=== PATIENT | female | born 1965 | race American Indian/Alaskan Native ===

== ENCOUNTER 2018-12-08 07:51 | Outpatient (CLI) | payer MEDICARE ==
[2018-12-08 08:38] LABS: Calcium 9.1 mg/dL (8.4-10.2)
== END 2018-12-08 07:52 | disposition home or self-care (01) ==
LOC: LAB 07:51
PROVIDERS: ATTEND Nurse Practitioner Acute Care
DX: I13.2 Hypertensive heart and chronic kidney disease with heart failure and with stage 5 chronic kidney disease, or end stage renal disease (principal); N18.6 End stage renal disease; I50.9 Heart failure, unspecified
CPT/HCPCS: 36415; 80048

== ENCOUNTER 2019-10-21 08:45 | Observation (INO) | payer MEDICARE ==
[2019-10-21 12:11] LABS: Hemoglobin 11.7 gm/dl (10.1-14.3); Mean Corpuscular HGB Conc 33 % (30-34); Mean Corpuscular Volume 101 fl (79-97); Platelet Count 175 K/mm3 (140-440); Red Blood Count 3.58 M/mm3 (3.65-5.03); Red Cell Distribution Width 15.2 % (13.2-15.2)
[2019-10-21 12:14] LABS: Calcium 8.2 mg/dL (8.4-10.2)
[2019-10-21] MEDS ORDERED: ALBUTEROL 2.5 MG/3 ML NEBU IH PRN (12:52)
[2019-10-21] MEDS ORDERED: ACETAMINOPHEN 325 MG TAB PO PRN (12:52)
[2019-10-21] MEDS ORDERED: ONDANSETRON 4 MG/2 ML INJ IV PRN (12:52)
--- NOTE | 2019-10-21 12:52 | History and Physical Report ---
History of Present Illness Chief complaint: I cannot get my dialysis today History of present illness: 54 YO Female with ESRD on HD(T,R,Sa), HTN, CHF, DM, Obesity Hypoventilation Syndrome, Asthma Mild Intermittent, SLE presents to ED for evaluation. Patient states that she presented to her dialysis clinic today for her routine scheduled dialysis. Patient was informed by dialysis center staff that she cannot undergo dialysis today because her fistula site was "too thin and there was too much liability to use it". Patient instructed to seek further care and evaluation at [facility]. Patient transported to [facility] via private vehicle for further evaluation and care. Patient seen and evaluated in the emergency department. Lab and imaging studies reviewed. Patient found to have end-stage renal disease, acidosis, hype rkalemia. Patient placed in observation status and admitted to medical floor for further care and observation. Vascular surgery consulted. Nephrology team consult placed in ED for urgent dialysis. Patient dialysis access site was deemed usable by vascular surgery service. Patient denies fever, chills, chest pain, palpitations, productive cough, skin rash, recent ill contacts. Prior admission on 10/20/2016 reviewed. All medication listed at time of admission has been reconciled. Past History Past Medical History: diabetes, ESRD, heart failure, hypertension Past Surgical History: , Other (Dialysis access) Social history: . denies: smoking, alcohol abuse, prescription drug abuse Family history: diabetes, hypertension Medications and Allergies Allergies Allergy/AdvReac Type Severity Reaction Status Date / Time iodine Allergy Itching Unverified 12/08/18 07:52 Home Medications Medication Instructions Recorded Confirmed Last Taken Type Calcium Acetate [Phoslo] 667 mg PO TID 06/19/16 10/21/16 10/20/16 History Famotidine [Pepcid] 20 mg PO DAILY 06/19/16 10/21/16 10/20/16 History Vit B Comp C/Folic Acid/Vit D3 1 each PO DAILY 06/19/16 10/21/16 10/20/16 History [Dialyvite 800 Plus D Wafer] Ipratropium/Albuterol Sulfate 1 ampul IH TIDRT #30 ampul.neb 06/22/16 10/21/16 10/20/16 Rx [DUONEB *Not for PRN Use*] Tadalafil (Nf) [Adcirca (Nf)] 40 mg PO DAILY 10/21/16 10/21/16 10/20/16 History amLODIPine 10 mg PO DAILY 10/21/16 10/21/16 10/20/16 History Cyclobenzaprine [Flexeril 10 MG 10 mg PO TID PRN #30 10/24/16 10/21/16 10/20/16 Rx TAB] Furosemide [Lasix TAB] 40 mg PO QDAY #30 10/24/16 10/21/16 10/20/16 Rx levoFLOXacin [Levaquin] 250 mg PO QDAY #5 tablet 10/24/16 Unknown Rx Review of Systems Constitutional: no weight loss, no weight gain, no fever, no chills Ears, nose, mouth and throat: no ear pain, no ear discharge, no tinnitis, no decreased hearing, no nasal congestion Breasts: no change in shape, no swelling, no mass Cardiovascular: no chest pain, no orthopnea, no palpitations, no rapid/irregular heart beat, no edema, no syncope Respiratory: no cough, no excessive sputum, no hemoptysis, no shortness of breath, no dyspnea on exertion Gastrointestinal: no nausea, no vomiting, no diarrhea, no constipation, no change in bowel habits, no hematemesis Genitourinary Female: no dysmenorrhea, no pelvic pain, no flank pain, no armando rrhagia, no dysuria, no urinary frequency, no stress incontinence, no urge incontinence Menstruation: no currently menstrual, no period normal, no period heavy, no period spotting, no period light Rectal: no pain, no incontinence, no bleeding Musculoskeletal: no neck stiffness, no neck pain, no shooting arm pain, no low back pain, no leg numbness/tingling Integumentary: no rash, no pruritis, no sores, no wounds, no boils Neurological: no head injury, no transient paralysis, no paralysis, no weakness, no numbness, no tingling, no seizures, no syncope Psychiatric: no anxiety, no change in sleep habits, no sleep disturbances, no insomnia, no change in libido Endocrine: no cold intolerance, no heat intolerance, no excessive thirst, no polydipsia, no polyuria Hematologic/Lymphatic: no easy bruising, no easy bleeding, no lymphadenopathy, no lymphedema Allergic/Immunologic: no urticaria, no allergic rhinitis, no persistent infections Exam - Constitutional Vitals: Temp Pulse Resp BP Pulse Ox 97.8 F 78 22 113/59 99 10/21/19 08:51 10/21/19 08:51 10/21/19 08:51 10/21/19 08:51 10/21/19 08:51 General appearance: Present: no acute distress, well-nourished, obese - EENT Eyes: Present: PERRL ENT: hearing intact, clear oral mucosa - Neck Neck: Present: supple, normal ROM - Respiratory Respiratory effort: normal Respiratory: bilateral: CTA - Cardiovascular Heart Sounds: Present: S1 & S2. Absent: rub, click - Extremities Extremities: pulses symmetrical, No edema Peripheral Pulses: within normal limits - Abdominal General gastrointestinal: Present: soft, non-tender, non-distended, normal bowel sounds Female genitourinary: Present: normal - Integumentary Integumentary: Present: clear, warm, dry - Musculoskeletal Musculoskeletal: gait normal, strength equal bilaterally - Psychiatric Psychiatric: appropriate mood/affect, intact judgment & insight - Neurologic Neurologic: CNII-XII intact, moves all extremities Results - Labs CBC & Chem 7: 10/21/19 11:38 10/21/19 11:38 Labs: Abnormal lab results 10/21/19 10/21/19 Range/Units 11:38 11:38 RBC 3.58 L (3.65-5.03) M/mm3 MCV 101 H (79-97) fl MCH 33 H (28-32) pg Potassium 5.2 H (3.6-5.0) mmol/L Chloride 97.2 L (98-107) mmol/L Carbon Dioxide 20 L (22-30) mmol/L BUN 38 H (7-17) mg/dL Creatinine 10.0 H (0.7-1.2) mg/dL Calcium 8.2 L (8.4-10.2) mg/dL Assessment and Plan - Patient Problems (1) End stage renal disease Current Visit: No Status: Acute Plan to address problem: Nephrology consult placed in ED, dialysis as per renal team, strict I/O, monitor urine output every shift, avoid nephrotoxic agents. (2) Problem with dialysis access Current Visit: Yes Status: Acute Qualifiers: Encounter type: initial encounter Qualified Code(s): T82.898A - Other specified complication of vascular prosthetic devices, implants and grafts, initial encounter Plan to address problem: Vascular surgery consulted. Patient dialysis access site deemed usable. Dialysis as per renal team. (3) Acidosis, metabolic Current Visit: Yes Status: Acute Plan to address problem: Supportive care, BMP, urgent dialysis, repeat BMP in a.m. (4) Hyperkalemia Current Visit: Yes Status: Acute Plan to address problem: Albuterol, urgent dialysis, no EKG changes. (5) Obesity hypoventilation syndrome Current Visit: Yes Status: Acute Plan to address problem: Supplemental oxygen, nebulizer therapy, pulse oximetry, noninvasive positive pressure ventilation as clinically indicated, outpatient bariatric surgery follow-up. (6) DVT prophylaxis Current Visit: Yes Status: Acute Plan to address problem: SCD to bilateral lower extremities while in bed, prophylactic heparin
--- NOTE | 2019-10-21 13:54 | Emergency Department Report ---
ED General Adult HPI - General Chief complaint: Medical Clearance Stated complaint: RT SIDE ABCESS CHECKED Time Seen by Provider: 10/21/19 11:28 Source: patient Mode of arrival: Ambulatory Limitations: No Limitations - History of Present Illness Initial comments: This is a 54-year-old female who states that she was told to come to the emergency department because her fistula/graft site was "too thin and there was too much liability to use it". Her last dialysis was on . She is due for dialysis today. She states that she has been in touch with Dr. Zhu. I spoke to Dr. Zhu and apparently she has missed some appointments for vascular surgery evaluation. She presents here to the emergency department requesting inpatient dialysis. She does not complain of acute shortness of breath. -: days(s) Severity scale (0 -10): 0 Associated Symptoms: denies other symptoms - Related Data Home Medications Medication Instructions Recorded Confirmed Last Taken Calcium Acetate [Phoslo] 667 mg PO TID 06/19/16 10/21/16 10/20/16 Famotidine [Pepcid] 20 mg PO DAILY 06/19/16 10/21/16 10/20/16 Vit B Comp C/Folic Acid/Vit D3 1 each PO DAILY 06/19/16 10/21/16 10/20/16 [Dialyvite 800 Plus D Wafer] Tadalafil (Nf) [Adcirca (Nf)] 40 mg PO DAILY 10/21/16 10/21/16 10/20/16 amLODIPine 10 mg PO DAILY 10/21/16 10/21/16 10/20/16 Previous Rx's Medication Instructions Recorded Last Taken Type Ipratropium/Albuterol Sulfate 1 ampul IH TIDRT #30 ampul.neb 06/22/16 10/20/16 Rx [DUONEB *Not for PRN Use*] Cyclobenzaprine [Flexeril 10 MG 10 mg PO TID PRN #30 10/24/16 10/20/16 Rx TAB] Furosemide [Lasix TAB] 40 mg PO QDAY #30 10/24/16 10/20/16 Rx levoFLOXacin [Levaquin] 250 mg PO QDAY #5 tablet 10/24/16 Unknown Rx Allergies Allergy/AdvReac Type Severity Reaction Status Date / Time iodine Allergy Itching Unverified 12/08/18 07:52 ED Review of Systems ROS: Stated complaint: RT SIDE ABCESS CHECKED Other details as noted in HPI Constitutional: denies: chills, fever Eyes: denies: eye pain, eye discharge, vision change ENT: denies: ear pain, throat pain Respiratory: denies: cough, shortness of breath Cardiovascular: denies: chest pain, palpitations Endocrine: no symptoms reported Gastrointestinal: denies: abdominal pain, nausea Genitourinary: denies: urgency, dysuria Musculoskeletal: denies: back pain, myalgia Skin: denies: rash, lesions Neurological: denies: weakness, paresthesias Psychiatric: denies: anxiety, depression Hematological/Lymphatic: denies: easy bleeding, easy bruising Other: Patient denies bleeding at dialysis. ED Past Medical Hx - Past Medical History Previous Medical History?: Yes Hx Hypertension: Yes Hx Congestive Heart Failure: Yes Hx Diabetes: Yes Hx Renal Disease: Yes (graft right arm TU TH Sat) Hx Asthma: Yes Hx COPD: No Hx HIV: No Additional medical history: lupus - Surgical History Past Surgical History?: Yes Additional Surgical History: x 3. graft placement - Social History Smoking Status: Never Smoker Substance Use Type: None - Medications Home Medications: Home Medications Medication Instructions Recorded Confirmed Last Taken Type Calcium Acetate [Phoslo] 667 mg PO TID 06/19/16 10/21/16 10/20/16 History Famotidine [Pepcid] 20 mg PO DAILY 06/19/16 10/21/16 10/20/16 History Vit B Comp C/Folic Acid/Vit D3 1 each PO DAILY 06/19/16 10/21/16 10/20/16 History [Dialyvite 800 Plus D Wafer] Ipratropium/Albuterol Sulfate 1 ampul IH TIDRT #30 ampul.neb 06/22/16 10/21/16 10/20/16 Rx [DUONEB *Not for PRN Use*] Tadalafil (Nf) [Adcirca (Nf)] 40 mg PO DAILY 10/21/16 10/21/16 10/20/16 History amLODIPine 10 mg PO DAILY 10/21/16 10/21/16 10/20/16 History Cyclobenzaprine [Flexeril 10 MG 10 mg PO TID PRN #30 10/24/16 10/21/16 10/20/16 Rx TAB] Furosemide [Lasix TAB] 40 mg PO QDAY #30 10/24/16 10/21/16 10/20/16 Rx levoFLOXacin [Levaquin] 250 mg PO QDAY #5 tablet 10/24/16 Unknown Rx ED Physical Exam - General Limitations: Altered Mental Status General appearance: alert, in no apparent distress, obese - Head Head exam: Present: atraumatic, normocephalic - Eye Eye exam: Present: normal appearance. Absent: scleral icterus - ENT ENT exam: Present: mucous membranes moist - Neck Neck exam: Present: normal inspection. Absent: tenderness, meningismus - Respiratory Respiratory exam: Present: normal lung sounds bilaterally. Absent: respiratory distress - Cardiovascular Cardiovascular Exam: Present: regular rate, normal rhythm. Absent: systolic murmur, diastolic murmur, rubs, gallop - GI/Abdominal GI/Abdominal exam: Present: soft, normal bowel sounds. Absent: distended, tenderness, guarding, rebound - Extremities Exam Extremities exam: Present: other (AV graft site does have 2 areas of hypopigmentation and granulation tissue. It does not appear to be excessively "thin") - Back Exam Back exam: Present: normal inspection - Neurological Exam Neurological exam: Present: alert, oriented X3 - Psychiatric Psychiatric exam: Present: normal affect, normal mood - Skin Skin exam: Present: warm, dry, intact, normal color. Absent: rash ED Course Vital Signs 10/21/19 10/21/19 10/21/19 08:51 11:30 12:30 Temperature 97.8 F Pulse Rate 78 72 74 Respiratory 22 18 18 Rate Blood Pressure 113/59 Blood Pressure 110/60 126/75 [Left] O2 Sat by Pulse 99 98 98 Oximetry - Reevaluation(s) Reevaluation #1: Discussed case with Dr. Zhu (research technician). He is consulted. Discussed case with vascular surgeon. He was consulted. The dialysis nurse came and inspected the patient's graft site. He stated he believed that she could be safely dialyzed here as an inpatient. She was put in line for dialysis. She was admitted by the hospitalist observation status. She was found to have mild hyperkalemia and acidosis. 10/21/19 13:54 ED Medical Decision Making - Lab Data Result diagrams: 10/21/19 11:38 10/21/19 11:38 Laboratory Results - last 24 hr 10/21/19 10/21/19 11:38 11:38 WBC 7.1 RBC 3.58 L Hgb 11.7 Hct 36.0 MCV 101 H MCH 33 H MCHC 33 RDW 15.2 Plt Count 175 Eos % (Auto) Cardiac Cath Lab Technologist Sodium 138 Potassium 5.2 H Chloride 97.2 L Carbon Dioxide 20 L Anion Gap 26 BUN 38 H Creatinine 10.0 H Estimated GFR 5 BUN/Creatinine Ratio 4 Glucose 88 Calcium 8.2 L Phosphorus 4.00 Critical care attestation.: If time is entered above; I have spent that time in minutes in the direct care of this critically ill patient, excluding procedure time. ED Disposition Clinical Impression: End-stage renal disease needing dialysis, Acidosis, metabolic, Hyperkalemia Disposition: OP ADMIT IP TO THIS HOSP Is pt being admited?: Yes Does the pt Need Aspirin: Yes Condition: Stable Referrals: FRANCESCA GRAY MD [Primary Care Provider] - 3-5 Days Time of Disposition: 13:55
[2019-10-21] MEDS ORDERED: ASPIRIN 81 MG TAB CHEW PO ONE (13:55)
[2019-10-21] MEDS ORDERED: SODIUM CHLORIDE 0.9% 100 ML IV PRN (13:56)
[2019-10-21 13:58] LABS: Basophils % (Manual) 0 % (0.0-1.8); RBC Morphology Normal; Total Cells Counted 100
--- NOTE | 2019-10-21 15:07 | Consultation ---
History of Present Illness - Reason for Consult Consult date: 10/21/19 malfunctioning av access Requesting physician: KLAUS SCOTT - History of Present Illness HPI: 54-year-old female with end-stage renal disease on hemodialysis via right brachiocephalic AV fistula has been placed several years ago who was sent to the emergency department by her dialysis center due to concern of the overlying skin of her access. The patient denies any issues of prolonged bleeding or elevated venous pressures recently. The patient states that her center refused to cannulate due to thin skin overlying the body of the AV fistula. We have been consulted to evaluate the patient's AV fistula. 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 Patient with noted thin skin over aneurysmal portion of the AV fistula Would avoid cannulating this portion of the AV fistula Patient would benefit from revision of her access at some point but not immediately necessary at this time AV fistula okay to use for dialysis at this time We will continue to follow Medications and Allergies Allergies Allergy/AdvReac Type Severity Reaction Status Date / Time iodine Allergy Itching Unverified 12/08/18 07:52 Home Medications Medication Instructions Recorded Confirmed Last Taken Type Calcium Acetate [Phoslo] 667 mg PO TID 06/19/16 10/21/16 10/20/16 History Famotidine [Pepcid] 20 mg PO DAILY 06/19/16 10/21/16 10/20/16 History Vit B Comp C/Folic Acid/Vit D3 1 each PO DAILY 06/19/16 10/21/16 10/20/16 History [Dialyvite 800 Plus D Wafer] Ipratropium/Albuterol Sulfate 1 ampul IH TIDRT #30 ampul.neb 06/22/16 10/21/16 10/20/16 Rx [DUONEB *Not for PRN Use*] Tadalafil (Nf) [Adcirca (Nf)] 40 mg PO DAILY 10/21/16 10/21/16 10/20/16 History amLODIPine 10 mg PO DAILY 10/21/16 10/21/16 10/20/16 History Cyclobenzaprine [Flexeril 10 MG 10 mg PO TID PRN #30 10/24/16 10/21/16 10/20/16 Rx TAB] Furosemide [Lasix TAB] 40 mg PO QDAY #30 10/24/16 10/21/16 10/20/16 Rx levoFLOXacin [Levaquin] 250 mg PO QDAY #5 tablet 10/24/16 Unknown Rx Active Meds: Active Medications Acetaminophen (Tylenol) 650 mg PO Q4H PRN PRN Reason: Pain MILD(1-3)/Fever >100.5/ROQUE Albuterol (Proventil) 2.5 mg IH Q4HRT PRN PRN Reason: Shortness Of Breath Albuterol/Ipratropium (Duoneb *Not For Prn Use*) 1 ampul IH TIDRT [facility] Amlodipine Besylate (Amlodipine) 10 mg PO DAILY [facility] Calcium Acetate (Phoslo) 667 mg PO TID [facility] Cyclobenzaprine HCl (Flexeril) 10 mg PO TID PRN PRN Reason: Muscle Spasm Famotidine (Pepcid) 20 mg PO DAILY [facility] Furosemide (Lasix) 40 mg PO QDAY [facility] Sodium Chloride (Nacl 0.9%) 100 mls @ 999 mls/hr IV SRIRAM PRN PRN Reason: Hypotension Levofloxacin (Levaquin) 250 mg PO QDAY [facility] Miscellaneous Medication (Tadalafil (Nf)) 40 mg PO DAILY [facility] Multivit/Ca Carb/B Cmplx/FA/Prenat (Renal Caps) 1 cap PO QDAY [facility] Ondansetron HCl (Zofran) 4 mg IV Q8H PRN PRN Reason: Nausea And Vomiting Sodium Chloride (Sodium Chloride Flush Syringe 10 Ml) 10 ml IV BID [facility] Sodium Chloride (Sodium Chloride Flush Syringe 10 Ml) 10 ml IV PRN PRN PRN Reason: LINE FLUSH Exam - Constitutional Vitals: Temp Pulse Resp BP Pulse Ox 97.8 F 74 18 126/75 98 10/21/19 08:51 10/21/19 12:30 10/21/19 12:30 10/21/19 12:30 10/21/19 12:30 Results - Labs CBC & Chem 7: 10/21/19 11:38 10/21/19 11:38 Labs: Abnormal lab results 10/21/19 10/21/19 Range/Units 11:38 11:38 RBC 3.58 L (3.65-5.03) M/mm3 MCV 101 H (79-97) fl MCH 33 H (28-32) pg Eosinophils % (Manual) 15.0 H (0.0-4.3) % Lymphocytes # (Manual) 1.1 L (1.2-5.4) K/mm3 Eosinophils # (Manual) 1.1 H (0.0-0.4) K/mm3 Potassium 5.2 H (3.6-5.0) mmol/L Chloride 97.2 L (98-107) mmol/L Carbon Dioxide 20 L (22-30) mmol/L BUN 38 H (7-17) mg/dL Creatinine 10.0 H (0.7-1.2) mg/dL Calcium 8.2 L (8.4-10.2) mg/dL
[2019-10-21] MEDS: IPRATROPIUM/ALBUTEROL SULFATE 3 ML AMPUL.NEB IH SCH ×2 (15:24→19:53)
[2019-10-21 15:43] LABS: Hepatitis B Surface Antigen Non-Reactive (Negative); Hepatitis C Virus Antibody Non-Reactive (NonReactive)
[2019-10-21] MEDS ORDERED: ASPIRIN 81 MG TAB CHEW ONE (16:03)
[2019-10-21] MEDS: levoFLOXacin 250 MG TAB PO SCH (16:08)
[2019-10-21] MEDS: CALCIUM ACETATE 667 MG CAP PO SCH ×2 (16:08→23:16)
--- NOTE | 2019-10-21 19:25 | Consultation ---
History of Present Illness - Reason for Consult Consult date: 10/21/19 end stage renal disease - History of Present Illness This is a 54 year-old woman with ESRD who presents for potential access issue. Patient usually dialyzes // at [facility]. Last HD 10/19/19. Denies any recent issues with HD, including dizziness, lightheadedness, cramping, chest pain on HD. Denies any alarms with HD due to access problems. AVF was noted to be concerning per outpatient HD staff, and was advised to get vascular evaluation but patient was unable to, and came to hospital for HD and evaluation Currently, patient denies any issues including dyspnea, edema, access issues, nausea, vomiting, headaches. Past History Past Medical History: diabetes, ESRD, heart failure, hypertension Past Surgical History: , Other (Dialysis access) Social history: . denies: smoking, alcohol abuse, prescription drug abuse Family history: diabetes, hypertension Medications and Allergies Allergies Allergy/AdvReac Type Severity Reaction Status Date / Time iodine Allergy Itching Unverified 12/08/18 07:52 Home Medications Medication Instructions Recorded Confirmed Last Taken Type Calcium Acetate [Phoslo] 667 mg PO TID 06/19/16 10/21/16 10/20/16 History Famotidine [Pepcid] 20 mg PO DAILY 06/19/16 10/21/16 10/20/16 History Vit B Comp C/Folic Acid/Vit D3 1 each PO DAILY 06/19/16 10/21/16 10/20/16 History [Dialyvite 800 Plus D Wafer] Ipratropium/Albuterol Sulfate 1 ampul IH TIDRT #30 ampul.neb 06/22/16 10/21/16 10/20/16 Rx [DUONEB *Not for PRN Use*] Tadalafil (Nf) [Adcirca (Nf)] 40 mg PO DAILY 10/21/16 10/21/16 10/20/16 History amLODIPine 10 mg PO DAILY 10/21/16 10/21/16 10/20/16 History Cyclobenzaprine [Flexeril 10 MG 10 mg PO TID PRN #30 10/24/16 10/21/16 10/20/16 Rx TAB] Furosemide [Lasix TAB] 40 mg PO QDAY #30 03/07/0210/21/16 10/20/16 Rx levoFLOXacin [Levaquin] 250 mg PO QDAY #5 tablet 10/24/16 Unknown Rx Active Meds: Active Medications Acetaminophen (Tylenol) 650 mg PO Q4H PRN PRN Reason: Pain MILD(1-3)/Fever >100.5/ROQUE Albuterol (Proventil) 2.5 mg IH Q4HRT PRN PRN Reason: Shortness Of Breath Albuterol/Ipratropium (Duoneb *Not For Prn Use*) 1 ampul IH TIDRT [facility] Last Admin: 10/21/19 15:24 Dose: Not Given Documented by: Amlodipine Besylate (Amlodipine) 10 mg PO DAILY [facility] Calcium Acetate (Phoslo) 667 mg PO TID [facility] Last Admin: 10/21/19 16:08 Dose: 667 mg Documented by: Cyclobenzaprine HCl (Flexeril) 10 mg PO TID PRN PRN Reason: Muscle Spasm Famotidine (Pepcid) 20 mg PO DAILY [facility] Furosemide (Lasix) 40 mg PO QDAY [facility] Sodium Chloride (Nacl 0.9%) 100 mls @ 999 mls/hr IV SRIRAM PRN PRN Reason: Hypotension Levofloxacin (Levaquin) 250 mg PO QDAY [facility] Last Admin: 10/21/19 16:08 Dose: 250 mg Documented by: Miscellaneous Medication (Tadalafil (Nf)) 40 mg PO DAILY [facility] Multivit/Ca Carb/B Cmplx/FA/Prenat (Renal Caps) 1 cap PO QDAY [facility] Ondansetron HCl (Zofran) 4 mg IV Q8H PRN PRN Reason: Nausea And Vomiting Sodium Chloride (Sodium Chloride Flush Syringe 10 Ml) 10 ml IV BID [facility] Sodium Chloride (Sodium Chloride Flush Syringe 10 Ml) 10 ml IV PRN PRN PRN Reason: LINE FLUSH Review of Systems All systems: negative (as per HPI) Exam - Vital Signs Vital signs: Vital Signs Temp Pulse Resp BP Pulse Ox 97.8 F 78 22 113/59 99 10/21/19 08:51 10/21/19 08:51 10/21/19 08:51 10/21/19 08:51 10/21/19 08:51 - Physical Exam Narrative exam: Constitutional: no acute distress Head: NC/AT Neck: supple Lungs: clear to auscultation CV: RRR, no M/R/G Abdomen: soft, non-tender, bowel sounds present Back: nontender Extremities: no edema, pulses WNL Skin: intact Neuro: no focal deficits, alert and oriented x4 Access: AVF with thinning skin but good thrill, bruit Results - Lab Results 10/21/19 11:38 10/21/19 11:38 Most recent lab results Calcium 8.2 mg/dL (8.4-10.2) L 10/21/19 11:38 Phosphorus 4.00 mg/dL (2.5-4.5) 10/21/19 11:38 Assessment and Plan This is a 54 year old woman who presents with concerns for dialysis access # ESRD: will provide HD per schedule today. Appreciate vascular input as well as dialysis nurses who also examined AVF site and deemed safe for cannulation. If HD is without issues today, can be discharged from renal perspective after HD - daily labs - renally dose meds - avoid nephrotoxins - renal diet # Mild Hyperkalemia, Acidosis: HD today # Anemia: last hemoglobin 11.7, no indication for HYUN # HTN: UF as tolerated. BP at goal # Secondary Hyperparathyroidism: continue home binders as needed
[2019-10-21] MEDS ORDERED: SODIUM CHLORIDE*PRIMING MACHINE ONLY FOR DIALYSIS MC ONE (23:07)
[2019-10-21] MEDS: CYCLOBENZAPRINE 10 MG TAB PO PRN (23:43)
[2019-10-22] MEDS: IPRATROPIUM/ALBUTEROL SULFATE 3 ML AMPUL.NEB IH SCH ×2 (08:15→14:01)
[2019-10-22] MEDS: CYCLOBENZAPRINE 10 MG TAB PO PRN (08:44)
[2019-10-22 08:45] VITALS: BP 130/48
[2019-10-22] MEDS: FUROSEMIDE 40 MG TAB PO SCH ×2 (08:45→10:10)
[2019-10-22] MEDS: CALCIUM ACETATE 667 MG CAP PO SCH (08:45)
--- NOTE | 2019-10-22 09:06 | Discharge Summary ---
Providers - Providers Date of Admission: 10/21/19 12:52 Date of discharge: 10/22/19 Attending physician: CAN ORTEGA 10/21/19 12:12 Consult to Physician [CONS] Urgent Comment: DR SONIA HAN W/DR HEIN @[id number] Consulting Provider: JESSE MARTINEZ Physician Instructions: Reason For Exam: access issue dialysis Primary care physician: [facility], Hospitalization Reason for admission: malfunctioning av access Condition: Stable Hospital course: 54-year-old female with end-stage renal disease on hemodialysis via right brachiocephalic AV fistula has been placed several years ago who was sent to the emergency department by her dialysis center due to concern of the overlying skin of her access. The patient denies any issues of prolonged bleeding or elevated venous pressures recently. The patient states that her center refused to cannulate due to thin skin overlying the body of the AV fistula. Vascular surgery consulted to evaluate the patient's AV fistula and felt that she would benefit from revision of her access at some point but not immediately necessary at this time. Vascular surgery reported that the AV fistula was okay to use for dialysis at this time. The patient received hemodialysis last evening and will be discharged home today. Patient is to follow-up with her regular dialysis schedule at her center next week. Dedicated discharge time 32 minutes. Disposition: [id number] TO HOME OR SELFCARE Time spent for discharge: 32 - Discharge Diagnoses (1) End-stage renal disease needing dialysis Status: Acute Core Measure Documentation - Palliative Care Palliative Care/ Comfort Measures: Not Applicable - Core Measures Any of the following diagnoses?: none Exam - Constitutional Vitals: Temp Pulse Resp BP Pulse Ox 98.7 F 78 18 130/48 95 10/22/19 05:59 10/22/19 08:44 10/22/19 08:18 10/22/19 08:44 10/22/19 08:18 General appearance: Present: no acute distress, well-nourished - EENT Eyes: Present: PERRL ENT: hearing intact, clear oral mucosa - Neck Neck: Present: supple, normal ROM - Respiratory Respiratory effort: normal Respiratory: bilateral: CTA - Cardiovascular Heart Sounds: Present: S1 & S2. Absent: rub, click - Extremities Extremities: pulses symmetrical, No edema Peripheral Pulses: within normal limits - Abdominal General gastrointestinal: Present: soft, non-tender, non-distended, normal bowel sounds Female genitourinary: Present: normal - Integumentary Integumentary: Present: clear, warm, dry - Musculoskeletal Musculoskeletal: gait normal, strength equal bilaterally - Psychiatric Psychiatric: appropriate mood/affect, intact judgment & insight - Neurologic Neurologic: CNII-XII intact, moves all extremities Plan Activity: advance as tolerated Weight Bearing Status: Weight Bear as Tolerated Diet: renal Follow up with: FRANCESCA GRAY MD [Primary Care Provider] - 3-5 Days
[2019-10-22] MEDS ORDERED: FOLIC ACID PO SCH (10:00)
[2019-10-22] MEDS ORDERED: FUROSEMIDE 40 MG PO SCH (10:00)
[2019-10-22] MEDS ORDERED: FAMOTIDINE 20 MG TAB PO SCH (10:00)
[2019-10-22] MEDS ORDERED: VIT B COMP C PO SCH (10:00)
[2019-10-22] MEDS ORDERED: TADALAFIL 40 MG PO SCH (10:00)
[2019-10-22] MEDS ORDERED: VIT D3 PO SCH (10:00)
[2019-10-22] MEDS ORDERED: FOLIC ACID/VIT B COMP W-C 1 MG (RENAL CAPS) PO SCH (10:00)
[2019-10-22] MEDS ORDERED: amLODIPine 10 MG TAB PO SCH (10:00)
--- NOTE | 2019-10-22 10:24 | Progress Note ---
Assessment and Plan This is a 54 year old woman who presents with concerns for dialysis access # ESRD: s/p HD yesterday, no issues noted. Appreciate vascular input as well as dialysis nurses who also examined AVF site and deemed safe for cannulation. Can be discharged from renal perspective as HD went well, continue HD // per outpatient routine - daily labs - renally dose meds - avoid nephrotoxins - renal diet # Anemia: last hemoglobin 11.7, no indication for HYUN # HTN: UF as tolerated. BP at goal # Secondary Hyperparathyroidism: continue home binders as needed Subjective Date of service: 10/22/19 Interval history: No acute events noted. HD went well, no access issues. No issues with cramping, chest pain, dizziness with HD. Objective - Exam Narrative Exam: Constitutional: no acute distress Head: NC/AT Neck: supple Lungs: clear to auscultation CV: RRR, no M/R/G Abdomen: soft, non-tender, bowel sounds present Back: nontender Extremities: no edema, pulses WNL Skin: intact Neuro: no focal deficits, alert and oriented x4 Access: AVF with thinning skin but good thrill, bruit - Vital Signs Vital signs: Vital Signs - 12hr 10/21/19 10/21/19 10/21/19 21:30 21:45 22:00 Temperature 98.0 F Pulse Rate 82 80 82 Pulse Rate [ Bilateral Lower Lobe] Respiratory 18 Rate Respiratory Rate [Bilateral Lower Lobe] Blood Pressure 112/54 110/56 110/48 O2 Sat by Pulse Oximetry 10/21/19 10/22/19 10/22/19 23:45 05:59 08:18 Temperature 98.4 F 98.7 F Pulse Rate 88 91 H Pulse Rate [ 85 Bilateral Lower Lobe] Respiratory 16 16 Rate Respiratory 18 Rate [Bilateral Lower Lobe] Blood Pressure 85/41 112/40 O2 Sat by Pulse 100 98 95 Oximetry 10/22/19 08:44 Temperature Pulse Rate 78 Pulse Rate [ Bilateral Lower Lobe] Respiratory Rate Respiratory Rate [Bilateral Lower Lobe] Blood Pressure 130/48 O2 Sat by Pulse Oximetry - Lab 10/21/19 11:38 10/21/19 11:38 Most recent lab results Calcium 8.2 mg/dL (8.4-10.2) L 10/21/19 11:38 Phosphorus 4.00 mg/dL (2.5-4.5) 10/21/19 11:38 Medications & Allergies - Medications Allergies/Adverse Reactions: Allergies iodine Allergy (Unverified 12/08/18 07:52) Itching Home Medications: Home Medications Medication Instructions Recorded Confirmed Last Taken Type Calcium Acetate [Phoslo] 667 mg PO TID 06/19/16 10/21/19 10/20/16 History Famotidine [Pepcid] 20 mg PO DAILY 06/19/16 10/21/19 10/20/16 History Vit B Comp C/Folic Acid/Vit D3 1 each PO DAILY 06/19/16 10/21/19 10/20/16 History [Dialyvite 800 Plus D Wafer] Ipratropium/Albuterol Sulfate 1 ampul IH TIDRT #30 ampul.neb 06/22/16 10/21/19 10/20/16 Rx [DUONEB *Not for PRN Use*] amLODIPine 10 mg PO DAILY 10/21/16 10/21/19 10/20/16 History Acetaminophen [Acetaminophen TAB] 650 mg PO Q4H PRN tablet 10/22/19 Unknown Rx Cyclobenzaprine [Flexeril 10 MG 10 mg PO TID PRN tablet 10/22/19 Unknown Rx TAB] Folic Acid/Vit B Comp W-C [Renal 1 cap PO QDAY capsule 10/22/19 Unknown Rx Caps] Furosemide [Lasix TAB] 40 mg PO QDAY tablet 10/22/19 Unknown Rx levoFLOXacin [Levaquin TAB] 250 mg PO QDAY tablet 10/22/19 Unknown Rx Active Medications: Generic Name Dose Route Start Last Admin Trade Name Greg PRN Reason Stop Dose Admin Acetaminophen 650 mg 10/21/19 12:52 10/22/19 10:13 Tylenol PO 650 mg Q4H PRN Administration Pain MILD(1-3)/Fever >100.5/ROQUE Albuterol 2.5 mg 10/21/19 12:52 Proventil IH Q4HRT PRN Shortness Of Breath Albuterol/Ipratropium 1 ampul 10/21/19 14:00 10/22/19 08:15 Duoneb *Not For Prn Use* IH 1 ampul TIDRT SEKOU Administration Amlodipine Besylate 10 mg 10/22/19 10:00 10/22/19 08:44 Amlodipine PO 10 mg DAILY SEKOU Administration Calcium Acetate 667 mg 10/21/19 14:00 10/22/19 08:45 Phoslo PO 667 mg TID SEKOU Administration Cyclobenzaprine HCl 10 mg 10/21/19 12:53 10/22/19 08:44 Flexeril PO 10 mg TID PRN Administration Muscle Spasm Famotidine 20 mg 10/22/19 10:00 10/22/19 10:14 Pepcid PO 20 mg DAILY SEKOU Administration Furosemide 40 mg 10/22/19 10:00 10/22/19 10:10 Lasix PO Not Given QDAY [facility] Sodium Chloride 100 mls @ 999 mls/hr 10/21/19 13:56 Nacl 0.9% IV SRIRAM PRN Hypotension Levofloxacin 250 mg 10/21/19 14:00 10/21/19 16:08 Levaquin PO 250 mg QDAY SEKOU Administration Miscellaneous Medication 40 mg 10/22/19 10:00 Tadalafil (Nf) PO DAILY [facility] Multivit/Ca Carb/B Cmplx/FA/Prenat 1 cap 10/22/19 10:00 10/22/19 08:44 Renal Caps PO 1 cap QDAY SEKOU Administration Ondansetron HCl 4 mg 10/21/19 12:52 Zofran IV Q8H PRN Nausea And Vomiting Sodium Chloride 10 ml 10/21/19 22:00 10/21/19 23:16 Sodium Chloride Flush Syringe 10 Ml IV 10 ml BID SEKOU Administration Sodium Chloride 10 ml 10/21/19 12:52 Sodium Chloride Flush Syringe 10 Ml IV PRN PRN LINE FLUSH
[2019-10-22] MEDS: levoFLOXacin 250 MG TAB PO SCH (11:08)
== END 2019-10-22 12:00 | disposition home or self-care (01) ==
LOC: ED 08:45 → 3A 12:52
PROVIDERS: ADMIT Internal Medicine; ATTEND Hospitalist
DX: I13.2 Hypertensive heart and chronic kidney disease with heart failure and with stage 5 chronic kidney disease, or end stage renal disease (principal); I50.9 Heart failure, unspecified; N18.6 End stage renal disease; E87.5 Hyperkalemia; E87.2 Acidosis; E11.22 Type 2 diabetes mellitus with diabetic chronic kidney disease; J45.909 Unspecified asthma, uncomplicated; E21.3 Hyperparathyroidism, unspecified; E66.2 Morbid (severe) obesity with alveolar hypoventilation; Z68.41 Body mass index [BMI] 40.0-44.9, adult; Z99.2 Dependence on renal dialysis; Z98.891 History of uterine scar from previous surgery
CPT/HCPCS: 36415; 80048; 80074; 84100; 85007; 85025; 94640; 99284; G0378; J7030; G0257

== ENCOUNTER 2022-04-17 06:05 | Inpatient (IN) | payer MEDICARE ==
[2022-04-17] MEDS ORDERED: SODIUM CHLORIDE 0.9% 1000 ML 1,000 ML IV ONE (06:32)
[2022-04-17 07:08] LABS: Basophils % (Auto) 0.6 % (0.0-1.8); Eosinophils # (Auto) 0.6 K/mm3 (0.0-0.4); Eosinophils % (Auto) 9.3 % (0.0-4.3); Hematocrit 28.4 % (30.3-42.9); Hemoglobin 9.2 gm/dl (10.1-14.3); Lymphocytes # (Auto) 0.8 K/mm3 (1.2-5.4); Lymphocytes % (Auto) 13.6 % (13.4-35.0); Mean Corpuscular HGB Conc 33 % (30-34); Mean Corpuscular Volume 101 fl (79-97); Monocytes # (Auto) 0.5 K/mm3 (0.0-0.8); Monocytes % (Auto) 9.1 % (0.0-7.3); Platelet Count 103 K/mm3 (140-440); Red Blood Count 2.81 M/mm3 (3.65-5.03); Red Cell Distribution Width 15.8 % (13.2-15.2)
--- NOTE | 2022-04-17 07:13 | XRay Report ---
Chest single view INDICATION: Syncope IMPRESSION: Cardiomegaly with mild bilateral interstitial edema Signer Name: Phong Phan MD Signed: 04/17/2022 7:09 AM Workstation Name: [id number]
[2022-04-17 07:17] LABS: INR 1.03 (0.87-1.13)
--- NOTE | 2022-04-17 07:25 | Emergency Department Report ---
ED Syncope HPI - General Chief Complaint: Syncope Stated Complaint: SYNCOPE/HYPOTENSION Time Seen by Provider: 04/17/22 06:31 - History of Present Illness Initial Comments: 56-year-old female with a history of HTn, and DM with end-stage renal disease on dialysis Wednesday, Wednesday, and Wednesday brought in with syncope episode that happened as she was trying to get into dialysis bus this morning. Patient reported that all was well before going to bed and when she woke up this morning. She denies any fever or chill. Patient denies any chest pain or shortness of breath before the episode. No history of seizure reported. No other modifying or associated factors reported. - Related Data Allergies/Adverse Reactions: Allergies iodine Allergy (Unverified 12/08/18 07:52) Itching Home Medications: Ambulatory Orders Calcium Acetate [Phoslo] 667 mg PO TID 06/19/16 Famotidine [Pepcid] 20 mg PO DAILY 06/19/16 Vit B Comp C/Folic Acid/Vit D3 [Dialyvite 800 Plus D Wafer] 1 each PO DAILY 06/19/16 Ipratropium/Albuterol Sulfate [DUONEB *Not for PRN Use*] 1 ampul IH TIDRT #30 ampul.neb 06/22/16 amLODIPine 10 mg PO DAILY 10/21/16 Acetaminophen [Acetaminophen TAB] 650 mg PO Q4H PRN tablet 10/22/19 Cyclobenzaprine [Flexeril 10 MG TAB] 10 mg PO TID PRN tablet 10/22/19 Folic Acid/Vit B Comp W-C [Renal Caps] 1 cap PO QDAY capsule 10/22/19 Furosemide [Lasix TAB] 40 mg PO QDAY tablet 10/22/19 levoFLOXacin [Levaquin TAB] 250 mg PO QDAY tablet 10/22/19 ED Review of Systems ROS: Stated complaint: SYNCOPE/HYPOTENSION Other details as noted in HPI Comment: All other systems reviewed and negative Cardiovascular: syncope, other (hypotension) ED Past Medical Hx - Past Medical History Previous Medical History?: Yes Hx Hypertension: Yes Hx Congestive Heart Failure: Yes (Pt denies) Hx Diabetes: Yes Hx GERD: Yes Hx Renal Disease: Yes (ESRD, graft right arm MWF) Hx Psychiatric Treatment: Yes (Depression) Hx Asthma: Yes Hx COPD: No Hx HIV: No Additional medical history: lupus. Pulmonary HTN pt on 2 liters home 02 NC - Surgical History Past Surgical History?: Yes Additional Surgical History: x 3. graft placement - Social History Smoking Status: Never Smoker - Medications Home Medications: Home Medications Medication Instructions Recorded Confirmed Last Taken Type Calcium Acetate [Phoslo] 667 mg PO TID 06/19/16 10/21/19 10/20/16 History Famotidine [Pepcid] 20 mg PO DAILY 06/19/16 10/21/19 10/20/16 History Vit B Comp C/Folic Acid/Vit D3 1 each PO DAILY 06/19/16 10/21/19 10/20/16 History [Dialyvite 800 Plus D Wafer] Ipratropium/Albuterol Sulfate 1 ampul IH TIDRT #30 ampul.neb 06/22/16 10/21/19 10/20/16 Rx [DUONEB *Not for PRN Use*] amLODIPine 10 mg PO DAILY 10/21/16 10/21/19 10/20/16 History Acetaminophen [Acetaminophen TAB] 650 mg PO Q4H PRN tablet 10/22/19 Unknown Rx Cyclobenzaprine [Flexeril 10 MG 10 mg PO TID PRN tablet 10/22/19 Unknown Rx TAB] Folic Acid/Vit B Comp W-C [Renal 1 cap PO QDAY capsule 10/22/19 Unknown Rx Caps] Furosemide [Lasix TAB] 40 mg PO QDAY tablet 10/22/19 Unknown Rx levoFLOXacin [Levaquin TAB] 250 mg PO QDAY tablet 10/22/19 Unknown Rx ED Physical Exam - General Limitations: No Limitations General appearance: alert, in no apparent distress - Head Head exam: Present: normal inspection - Eye Eye exam: Present: normal appearance Pupils: Present: normal accommodation - ENT ENT exam: Present: normal exam, normal orophraynx, mucous membranes dry - Neck Neck exam: Present: normal inspection, full ROM. Absent: tenderness - Respiratory Respiratory exam: Present: normal lung sounds bilaterally. Absent: respiratory distress, accessory muscle use - Cardiovascular Cardiovascular Exam: Present: regular rate, normal rhythm, normal heart sounds - GI/Abdominal GI/Abdominal exam: Present: soft, normal bowel sounds. Absent: distended, tenderness - Extremities Exam Extremities exam: Present: other (dialysis graft on the right arm) - Back Exam Back exam: Absent: tenderness - Neurological Exam Neurological exam: Present: alert, oriented X3 - Psychiatric Psychiatric exam: Present: normal affect, normal mood - Skin Skin exam: Present: warm, normal color ED Course Vital Signs 04/17/22 04/17/22 04/17/22 06:07 06:15 06:25 Temperature 97.2 F L Pulse Rate 76 81 Respiratory 18 19 Rate Blood Pressure Blood Pressure 110/72 [Left] O2 Sat by Pulse 100 100 100 Oximetry 04/17/22 04/17/22 04/17/22 06:30 07:00 07:46 Temperature Pulse Rate 74 75 75 Respiratory 15 17 16 Rate Blood Pressure 102/55 102/55 97/55 Blood Pressure [Left] O2 Sat by Pulse 100 100 100 Oximetry 04/17/22 04/17/22 04/17/22 08:00 08:16 08:30 Temperature Pulse Rate 74 77 76 Respiratory 17 18 15 Rate Blood Pressure 106/57 102/56 106/58 Blood Pressure [Left] O2 Sat by Pulse 100 100 100 Oximetry 04/17/22 04/17/22 04/17/22 08:46 09:00 09:16 Temperature Pulse Rate 75 72 73 Respiratory 17 15 16 Rate Blood Pressure 102/50 93/52 94/61 Blood Pressure [Left] O2 Sat by Pulse 100 100 100 Oximetry 04/17/22 04/17/22 04/17/22 09:30 09:46 10:00 Temperature Pulse Rate 72 76 76 Respiratory 15 12 18 Rate Blood Pressure 98/65 93/64 92/68 Blood Pressure [Left] O2 Sat by Pulse 100 100 Oximetry 04/17/22 04/17/22 04/17/22 10:16 10:30 10:46 Temperature Pulse Rate 77 74 74 Respiratory 18 16 16 Rate Blood Pressure 92/74 109/60 107/56 Blood Pressure [Left] O2 Sat by Pulse 98 100 100 Oximetry 04/17/22 04/17/22 04/17/22 11:00 11:16 11:30 Temperature Pulse Rate 72 74 69 Respiratory 17 17 15 Rate Blood Pressure 109/58 114/57 117/60 Blood Pressure [Left] O2 Sat by Pulse 100 100 100 Oximetry 04/17/22 04/17/22 04/17/22 11:46 12:00 12:16 Temperature Pulse Rate 70 68 70 Respiratory 17 16 17 Rate Blood Pressure 109/60 103/53 109/60 Blood Pressure [Left] O2 Sat by Pulse 100 100 100 Oximetry 04/17/22 04/17/22 04/17/22 12:30 12:46 13:00 Temperature Pulse Rate 71 71 70 Respiratory 15 13 17 Rate Blood Pressure 107/58 96/53 111/57 Blood Pressure [Left] O2 Sat by Pulse 100 100 100 Oximetry 04/17/22 04/17/22 04/17/22 13:16 13:46 14:16 Temperature Pulse Rate 69 68 71 Respiratory 28 H 19 15 Rate Blood Pressure 111/57 101/40 101/40 Blood Pressure [Left] O2 Sat by Pulse 100 100 90 Oximetry 04/17/22 14:31 Temperature Pulse Rate 68 Respiratory 15 Rate Blood Pressure 90/46 Blood Pressure [Left] O2 Sat by Pulse 100 Oximetry - Consultations Consultation #1: 04/17/22 15:20 I called and spoke with Dr Wasserman who accept pt and plan to have her dialyzed today Consultation #2: 04/17/22 15:21 Dr Mora consulted who came in to the ED and evaluate patient ED Medical Decision Making - Lab Data Result diagrams: 04/17/22 06:53 04/17/22 06:53 - EKG Data -: EKG Interpreted by Me EKG shows normal: sinus rhythm Rate: normal - EKG Data 04/17/22 07:24 Noted with normal sinus rhythm at a rate of [address] abnormality with prolonged QT interval and this abnormal ECG. - Medical Decision Making Here with syncope episode associated with hypotension on presentation while trying to get in her dialysis bus this AM-- this could be vasovagal related to her antihypertensive medication or heat exhaustion--but differential could be and not limited to seizure, symptomatic anemia considering her history of ESRD with chronic anemia, myocardial infarction, pulmonary embolism, anxiety, CVA especially posterior stroke or thyroid abnormality--in order to rule those out I will go ahead and order routine cardiopulmonary work-up that include troponin, EKG, chest x-ray, BNP, CKMB, and CBC, CMP, Urinalysis and thyroid panel for any correctable infectious process or electrolyte abnormality as a cause. Will also order CT brain for any intracranial abnormality as mentioned above. In the meantime will give ivf ns 1L bolus for hydration as most are dehydrated anyway. Initial ECG noted with no ST or T wave depression or elevation-- will continue to monitor-- Lab reviewed and noted with BUN/creatinine at 45/8.5, with elevated troponin at 0.038 which is likely as a result of kidney insufficiency. Also noted with low H&H of 9.2/28.4 which also seem to be chronic from chronic renal insufficiency. Pt is suppose to be dialyze today but missed it due to her episode of syncope-- so will call Investigator Claims to have patient admitted for dialysis-- Critical care attestation.: If time is entered above; I have spent that time in minutes in the direct care of this critically ill patient, excluding procedure time. ED Disposition Clinical Impression: Syncope and collapse, ESRD (end stage renal disease) on dialysis Hypotension Qualifiers: Hypotension type: unspecified hypotension type Qualified Code(s): I95.9 - Hypotension, unspecified Disposition: 09 ADMITTED INPATIENT Is pt being admited?: Yes Does the pt Need Aspirin: No Condition: Stable Instructions: Syncope (ED) Referrals: JESSICA ANDRE MD [Primary Care Provider] - 3-5 Days
[2022-04-17 07:32] LABS: Albumin 3.7 g/dL (3.9-5); Calcium 7.7 mg/dL (8.4-10.2)
[2022-04-17 08:38] LABS: Chol/HDL Ratio 2.02 %
--- NOTE | 2022-04-17 13:41 | Electrocardiograph Report ---
[facility] Test Date: 2022-04-17 Test Time: 07:08:45 Pat Name: GYPSY REED Department: Room: Gender: F Poultry Farmer Meat: ALLIE Anna : 1965 Requested By: PANCHO ELIAS Order Number: [id number] Reading MD: Garrison Loo Measurements Intervals Orient Rate: 76 P: 47 WI: 162 QRS: 38 QRSD: 93 T: 10 QT: 467 QTc: 525 Interpretive Statements Sinus rhythm Abnormal T, consider ischemia, anterior leads Prolonged QT interval No previous ECG available for comparison Electronically Signed On 04-17-2022 13:41:23 EDT by Garrison Loo
--- NOTE | 2022-04-17 15:49 | Consultation ---
History of Present Illness - History of Present Illness Thank you for the consultation ! Patient was evaluated today, #End-stage kidney disease: Patient is currently dialysis dependent but was not able to dialyze due to syncopal spell, she also does have lower blood pressure than normal, currently taking midodrine patient claims to be compliant with the medication If stable can consider dialysis tomorrow Monitor dialysis related labs/monitor for any access issues Fluid restriction 1200 cc/day high-protein diet #Access: Needs to be monitored during dialysis Has been working well so far #Hypertension and volume: She does not have any evidence of significant volume overload told me that she does get ultrafiltration nearly 2 kg which could be significant given that she is hypotensive Continue with midodrine may consider adding fludrocortisone #Given the history of syncope would like to check orthostatic blood pressure, judicious ultrafiltration hemodialysis, suggest cardiology evaluation #Anemia in end-stage kidney disease: To monitor and follow erythropoietin periodically goal hemoglobin between 10-11-1/2 Minimize lab draw in dialysis patients, if possible consider limiting to dialysis days Bone mineral disorder and secondary hyperparathyroidism; Monitor phosphorus binders as necessary goal phosphorus less than 5-1/2 #Diet and nutrition: High-protein diet, multivitamin, Nepro, #Medication recommendation: May consider increasing midodrine as well as adding fludrocortisone If you have any question in regards to this patient renal care please feel free to contact me at [phone] Author: Reji Linares M.D. [facility], [address] [place] [address] Tel; [phone] [employer] Source of information: From patient History of present illness Patient is a very pleasant 56-year-old female who is currently established with us for her end-stage kidney disease care, patient has been admitted here with syncopal spell, she has been taking her midodrine regularly, patient told me that usually she takes off about 2 L of fluid, today in the ER her blood pressure is around 97/60. On the monitor, she is currently asymptomatic she does have chronic hypotension however. Work-up is in progress for syncope Past medical history: End-stage kidney disease anemia in end-stage kidney disease Chronic hypotension Secondary hyperparathyroidism Congestive heart failure Depression Current allergies: Reviewed from the current chart Social history: Reviewed from the current chart Family history: Reviewed from the current chart Review of system: Positive for syncopal spell work-up in progress All other review of systems negative Physical examination Vitals: Reviewed General: No acute distress HEENT: Oral mucosa moist no pallor or icterus Neck: Supple without any JVD thyromegaly or nodular mass Chest: Clear to auscultation Heart: Regular rate and rhythm S1-S2 heard no S3-S4 Abdomen: Soft nontender, bowel sounds present no renal bruit no suprapubic masses no CVA tenderness noted Extremity: Minimal edema dry skin no peripheral cyanosis Endocrine: Thyroid not enlarged Psychiatric: No agitation and aggression noted Musculoskeletal: No joint effusion noted Labs and x-rays: Reviewed from this admission Medications and Allergies Allergies Allergy/AdvReac Type Severity Reaction Status Date / Time iodine Allergy Itching Verified 04/18/22 04:38 Home Medications Medication Instructions Recorded Confirmed Last Taken Type Calcium Acetate [Phoslo] 667 mg PO TID 06/19/16 04/17/22 10/20/16 History Famotidine [Pepcid] 20 mg PO DAILY 06/19/16 04/17/22 10/20/16 History Vit B Comp C/Folic Acid/Vit D3 1 each PO DAILY 06/19/16 04/17/22 10/20/16 History [Dialyvite 800 Plus D Wafer] Ipratropium/Albuterol Sulfate 1 ampul IH TIDRT #30 ampul.neb 06/22/16 04/17/22 10/20/16 Rx [DUONEB *Not for PRN Use*] amLODIPine 10 mg PO DAILY 10/21/16 04/17/22 10/20/16 History Acetaminophen [Acetaminophen TAB] 650 mg PO Q4H PRN tablet 10/22/19 04/17/22 Unknown Rx Cyclobenzaprine [Flexeril 10 MG 10 mg PO TID PRN tablet 10/22/19 04/17/22 Unknown Rx TAB] Folic Acid/Vit B Comp W-C [Renal 1 cap PO QDAY capsule 10/22/19 04/17/22 Unknown Rx Caps] Furosemide [Lasix TAB] 40 mg PO QDAY tablet 10/22/19 04/17/22 Unknown Rx levoFLOXacin [Levaquin TAB] 250 mg PO QDAY tablet 10/22/19 04/17/22 Unknown Rx Exam - Vital Signs Vital signs: Vital Signs Temp Pulse Resp BP Pulse Ox 97.2 F L 76 18 110/72 100 04/17/22 06:07 04/17/22 06:07 04/17/22 06:07 04/17/22 06:07 04/17/22 06:07 Results - Lab Results 04/17/22 06:53 04/18/22 04:59 Most recent lab results Calcium 7.7 mg/dL (8.4-10.2) L 04/17/22 06:53 Magnesium 1.70 mg/dL (1.7-2.3) 04/17/22 06:53
--- NOTE | 2022-04-17 15:51 | History and Physical Report ---
History of Present Illness Chief complaint: I passed out today History of present illness: 56 YO Female with ESRD on HD(M,W,F), HTN, CHF, DM, Obesity Hypoventilation Syndrome, Asthma Mild Intermittent, SLE, Pulmonary HTN, Chronic Respiratory Failure on Home oxygen @2L [place] presents to ED for evaluation. Patient reports "I passed out today". Patient states that she was in her usual state of health when she was on the bus and being transported to her routine dialysis session. Patient states that she felt a sudden onset of weakness and subsequently lost consciousness. EMS was notified and upon arrival the patient was found to be in distress and subsequent transported to [facility] for further care and evaluation of th e aforementioned symptoms. Patient seen and evaluated in the emergency department. Lab and imaging studies reviewed. Patient found to have end-stage renal disease, acidosis, as well as orthostatic hypotension. Patient admitted to medical floor for medical stabilization due to increased risk of worsening symptoms. Nephrology team consult placed in ED for urgent dialysis. Patient denies fever, chills, chest pain, palpitations, productive cough, skin rash, recent ill contacts, known exposure to COVID-19. Prior admission on 10/21/2019 reviewed. All medication listed at time of admission has been reconciled. Advanced care planning conducted in ED. Past History Past Medical History: diabetes, ESRD, heart failure, hypertension, other (See HPI) Past Surgical History: , Other (Dialysis access) Social history: . denies: smoking, alcohol abuse, prescription drug abuse Family history: diabetes, hypertension Medications and Allergies Allergies Allergy/AdvReac Type Severity Reaction Status Date / Time iodine Allergy Itching Unverified 12/08/18 07:52 Home Medications Medication Instructions Recorded Confirmed Last Taken Type Calcium Acetate [Phoslo] 667 mg PO TID 06/19/16 10/21/19 10/20/16 History Famotidine [Pepcid] 20 mg PO DAILY 06/19/16 10/21/19 10/20/16 History Vit B Comp C/Folic Acid/Vit D3 1 each PO DAILY 06/19/16 10/21/19 10/20/16 History [Dialyvite 800 Plus D Wafer] Ipratropium/Albuterol Sulfate 1 ampul IH TIDRT #30 ampul.neb 06/22/16 10/21/19 10/20/16 Rx [DUONEB *Not for PRN Use*] amLODIPine 10 mg PO DAILY 10/21/16 10/21/19 10/20/16 History Acetaminophen [Acetaminophen TAB] 650 mg PO Q4H PRN tablet 10/22/19 Unknown Rx Cyclobenzaprine [Flexeril 10 MG 10 mg PO TID PRN tablet 10/22/19 Unknown Rx TAB] Folic Acid/Vit B Comp W-C [Renal 1 cap PO QDAY capsule 10/22/19 Unknown Rx Caps] Furosemide [Lasix TAB] 40 mg PO QDAY tablet 10/22/19 Unknown Rx levoFLOXacin [Levaquin TAB] 250 mg PO QDAY tablet 10/22/19 Unknown Rx Review of Systems Constitutional: no weight loss, no weight gain, no fever, no chills Ears, nose, mouth and throat: no decreased hearing, no nasal congestion, no nasal discharge Breasts: no change in shape, no swelling, no mass Cardiovascular: syncope, no chest pain, no orthopnea, no palpitations, no rapid/irregular heart beat, no edema Respiratory: no cough, no cough with sputum, no excessive sputum, no hemoptysis Gastrointestinal: no nausea, no vomiting, no diarrhea, no constipation Genitourinary Female: no pelvic pain, no flank pain, no dysuria, no urinary frequency, no urgency Rectal: no pain, no incontinence, no bleeding Musculoskeletal: no neck stiffness, no neck pain, no shooting arm pain, no arm numbness/tingling, no low back pain Integumentary: no rash, no pruritis, no redness, no sores, no wounds Neurological: no transient paralysis, no paralysis, no weakness, no parathesias, no tingling, no tremors Psychiatric: no anxiety, no memory loss, no sleep disturbances, no insomnia, no hypersomnia, no change in libido Endocrine: no cold intolerance, no heat intolerance, no polyphagia, no polydipsia, no excessive sweating Hematologic/Lymphatic: no easy bruising, no easy bleeding, no lymphedema Allergic/Immunologic: no urticaria, no allergic rhinitis, no wheezing, no persistent infections Exam - Constitutional Vitals: Temp Pulse Resp BP Pulse Ox 97.2 F L 68 15 90/46 100 04/17/22 06:07 04/17/22 14:31 04/17/22 14:31 04/17/22 14:31 04/17/22 14:31 General appearance: Present: mild distress, obese - EENT Eyes: Present: PERRL ENT: hearing intact, clear oral mucosa - Neck Neck: Present: supple, normal ROM - Respiratory Respiratory effort: normal Respiratory: bilateral: CTA - Cardiovascular Heart Sounds: Present: S1 & S2. Absent: rub, click - Extremities Extremities: pulses symmetrical, No edema Peripheral Pulses: within normal limits - Abdominal General gastrointestinal: Present: soft, non-tender, non-distended, normal bowel sounds Female genitourinary: Present: normal - Integumentary Integumentary: Present: clear, warm, dry - Musculoskeletal Musculoskeletal: gait normal, strength equal bilaterally - Psychiatric Psychiatric: appropriate mood/affect, intact judgment & insight - Neurologic Neurologic: CNII-XII intact, moves all extremities HEART Score - HEART Score Troponin: Troponin T 0.038 ng/mL (0.00-0.029) H 04/17/22 06:53 Results - Labs CBC & Chem 7: 04/17/22 06:53 04/17/22 06:53 Labs: Abnormal lab results 04/17/22 04/17/22 Range/Units 06:53 06:53 RBC 2.81 L (3.65-5.03) M/mm3 Hgb 9.2 L (10.1-14.3) gm/dl Hct 28.4 L (30.3-42.9) % MCV 101 H (79-97) fl MCH 33 H (28-32) pg RDW 15.8 H (13.2-15.2) % Plt Count 103 L (140-440) K/mm3 Jones % (Auto) 9.1 H (0.0-7.3) % Eos % (Auto) 9.3 H (0.0-4.3) % Lymph # (Auto) 0.8 L (1.2-5.4) K/mm3 Eos # (Auto) 0.6 H (0.0-0.4) K/mm3 BUN 45 H (7-17) mg/dL Creatinine 8.5 H (0.6-1.2) mg/dL Calcium 7.7 L (8.4-10.2) mg/dL AST 63 H (5-40) units/L Alkaline Phosphatase 182 H (35-129) units/L Troponin T 0.038 H (0.00-0.029) ng/mL Albumin 3.7 L (3.9-5) g/dL LDL Cholesterol Direct 30 L (50-130) mg/dL Assessment and Plan - Patient Problems (1) ESRD (end stage renal disease) on dialysis Current Visit: Yes Status: Acute Plan to address problem: Nephrology team consulted in ED, strict I's/O, monitoring output every shift, monitor fluid balance, avoid nephrotoxic agents. Dialysis as per renal team. (2) Heart failure Current Visit: Yes Status: Acute Qualifiers: Heart failure chronicity: chronic Plan to address problem: No acute exacerbation at this time. Continue medical management, continue to monitor. (3) Orthostatic hypotension Current Visit: Yes Status: Acute Plan to address problem: Supportive care, IV fluid resuscitation therapy as clinically indicated. Hold antihypertensive therapy at this time. (4) Pulmonary hypertension Current Visit: Yes Status: Acute Plan to address problem: Submental oxygen, supportive care. Continue medical management. (5) Chronic respiratory failure Current Visit: Yes Status: Acute Plan to address problem: Continue medical management. Continue supplemental oxygen. Pulse oximetry. (6) Syncope and collapse Current Visit: Yes Status: Acute Plan to address problem: CT scan head, orthostatic blood pressure management, supportive care. (7) DVT prophylaxis Current Visit: No Status: Acute Plan to address problem: SCDs to bilateral lower extremities while in bed (8) Advance care planning Current Visit: Yes Status: Acute Plan to address problem: Disease education done, care plan discussed, diagnoses discussed, prognosis di scussed, patient is full code. Patient knowledges understanding and agreement with care plan, +30 minutes. (9) Preventative health care Current Visit: Yes Status: Acute Plan to address problem: Patient counseled regarding outpatient follow-up with primary care physician for all age and risk factor appropriate screening test, meal planning, weight reduction, +30 minutes.
[2022-04-17] MEDS ORDERED: ALBUTEROL 2.5 MG/3 ML NEBU IH PRN (16:00)
[2022-04-17] MEDS ORDERED: oxyCODONE /ACETAMINOPHEN 5-325MG TAB PO PRN (16:30)
[2022-04-17] MEDS ORDERED: ONDANSETRON 4 MG/2 ML INJ IV PRN (16:30)
[2022-04-17] MEDS ORDERED: HYDROmorphone 0.5 MG/0.5 ML INJ IV PRN (16:30)
[2022-04-17] MEDS: FAMOTIDINE 10 MG TAB PO SCH (21:36)
[2022-04-18] MEDS: ACETAMINOPHEN 325 MG TAB PO PRN ×2 (02:12→15:06)
--- NOTE | 2022-04-18 02:18 | Cat Scan Report ---
CT HEAD WITHOUT CONTRAST INDICATION / CLINICAL INFORMATION: syncope. TECHNIQUE: All CT scans at this location are performed using CT dose reduction for ALARA by means of automated exposure control. COMPARISON: None available. FINDINGS: BRAIN PARENCHYMA: No acute intracranial hemorrhage. No evidence of recent infarct. No mass effect or midline shift. VENTRICULAR SYSTEM/EXTRA-AXIAL SPACES: Ventricles are normal for age. No extra-axial fluid collection . ORBITS: Normal as visualized. SKELETAL SYSTEM/SOFT TISSUES: Normal bones and soft tissues. PARANASAL SINUSES/MASTOID AIR CELLS: No significant abnormality. ADDITIONAL FINDINGS: None. IMPRESSION: 1. No acute intracranial abnormality. Signer Name: Jad Erickson MD Signed: 04/18/2022 2:14 AM Workstation Name: [id number]
[2022-04-18 05:38] LABS: Calcium 7.4 mg/dL (8.4-10.2)
--- NOTE | 2022-04-18 10:06 | Progress Note ---
Subjective Interval history: Assessment and plan #End-stage kidney disease currently on maintenance of dialysis, patient is blood pressure was low and hence she could not receive her dialysis yesterday #History of chronic hypotension patient has been taking midodrine in the outpatient setting, dose may be increased, she will also need to be considered for fludrocortisone I have told the patient that she will also require compression stocking medium strength thigh-high, which can also help her with her blood pressure Her normal systolic blood pressure has been in the 90s and 100, low range Anemia in end-stage kidney disease, continue to monitor and follow current hemoglobin 9.2 we will administer weekly erythropoietin Thrombocytopenia to be monitored, Chronic hypocalcemia, patient does take calcium acetate in the outpatient setting for her hyperphosphatemia which should be continued If there are any renal related issues in regards to this patient please feel free to reach out without any hesitation at [phone] We'll continue to follow and make recommendation for renal standpoint. Progress note by: Reji Linares MD [address] [place] [address] Tele [phone] [email or web address] Patient was seen today for follow-up of multiple renal related issues Patient states that she feels well she came for dialysis but her systolic blood pressure was in 80s Interdisciplinary notes that also reviewed Events of 24 hours vitals labs intake output medications were reviewed Past medical history: Reviewed Family history: Reviewed Social history: Reviewed Allergies: Reviewed Physical examination: Vitals: Reviewed HEENT: No pallor or icterus oral mucosa moist Neck: Supple no JVD no thyromegaly Chest: Bilateral clear to auscultation anteriorly Heart: Regular rate and rhythm S1-S2 heard no S3-S4 Abdomen: Soft nontender no voluntary guarding rigidity rebound Extremity: Dry skin less than 1+ peripheral edema Psychiatric: No evidence of agitation and aggression noted Dermatology: No petechial rashes Labs and x-rays: Reviewed from today Objective - Vital Signs Vital signs: Vital Signs - 12hr 04/17/22 04/17/22 04/18/22 22:55 22:58 02:12 Temperature 98.3 F 98.3 F Pulse Rate 77 Respiratory 20 18 20 Rate Blood Pressure 93/44 106/59 O2 Sat by Pulse 100 Oximetry 04/18/22 04/18/22 03:12 08:50 Temperature Pulse Rate Respiratory 18 Rate Blood Pressure O2 Sat by Pulse 100 Oximetry - Lab 04/17/22 06:53 04/18/22 04:59 Most recent lab results Calcium 7.4 mg/dL (8.4-10.2) L 04/18/22 04:59 Magnesium 1.70 mg/dL (1.7-2.3) 04/17/22 06:53 Medications & Allergies - Medications Allergies/Adverse Reactions: Allergies iodine Allergy (Verified 04/18/22 04:38) Itching Home Medications: Home Medications Medication Instructions Recorded Confirmed Last Taken Type Calcium Acetate [Phoslo] 667 mg PO TID 06/19/16 04/17/22 10/20/16 History Famotidine [Pepcid] 20 mg PO DAILY 06/19/16 04/17/22 10/20/16 History Vit B Comp C/Folic Acid/Vit D3 1 each PO DAILY 06/19/16 04/17/22 10/20/16 History [Dialyvite 800 Plus D Wafer] Ipratropium/Albuterol Sulfate 1 ampul IH TIDRT #30 ampul.neb 06/22/16 04/17/22 10/20/16 Rx [DUONEB *Not for PRN Use*] Acetaminophen [Acetaminophen TAB] 650 mg PO Q4H PRN tablet 10/22/19 04/17/22 Unknown Rx Cyclobenzaprine [Flexeril 10 MG 10 mg PO TID PRN tablet 10/22/19 04/17/22 Unknown Rx TAB] Folic Acid/Vit B Comp W-C [Renal 1 cap PO QDAY capsule 10/22/19 04/17/22 Unknown Rx Caps] Active Medications: Generic Name Dose Route Start Last Admin Trade Name Freq PRN Reason Stop Dose Admin Acetaminophen 650 mg 04/17/22 16:30 04/18/22 02:12 Acetaminophen 325 Mg Tab PO 650 mg Q4H PRN Administration Pain MILD(1-3)/Fever >100.5/ROQUE Albuterol 2.5 mg 04/17/22 16:00 Albuterol 2.5 Mg/3 Ml Nebu IH Q4HRT PRN Shortness Of Breath Famotidine 10 mg 04/17/22 22:00 04/17/22 21:36 Famotidine 10 Mg Tab PO 10 mg BID SEKOU Administration Hydromorphone HCl 0.5 mg 04/17/22 16:30 Hydromorphone 0.5 Mg/0.5 Ml Inj IV Q23H PRN Pain , Severe (7-10) Ondansetron HCl 4 mg 04/17/22 16:30 Ondansetron 4 Mg/2 Ml Inj IV Q8H PRN Nausea And Vomiting Oxycodone/Acetaminophen 1 tab 04/17/22 16:30 Oxycodone /Acetaminophen 5-325mg Tab PO Q6H PRN Pain, Moderate (4-6) Sodium Chloride 10 ml 04/17/22 22:00 04/17/22 21:37 Sodium Chloride 0.9% 10 Ml Flush Syringe IV 10 ml BID SEKOU Administration Sodium Chloride 10 ml 04/17/22 15:51 Sodium Chloride 0.9% 10 Ml Flush Syringe IV 04/22/22 15:50 PRN PRN LINE FLUSH
[2022-04-18] MEDS ORDERED: MIDODRINE 5 MG TAB PO ONE (10:07)
[2022-04-18] MEDS: FAMOTIDINE 10 MG TAB PO SCH ×2 (10:12→22:19)
--- NOTE | 2022-04-18 12:26 | Discharge Summary ---
Providers - Providers Date of Admission: 04/17/22 15:51 Date of discharge: 04/18/22 Attending physician: JAVAD TALAMANTES 04/18/22 12:23 Physical Therapy Evaluation and Treat [CONS] Routine Comment: Reason For Exam: Debility Primary care physician: JESSICA ANDRE Hospitalization Condition: Stable Disposition: HOME HEALTH CARE SERVICE Final Discharge Diagnosis (Prints w/discharge instructions): -- Syncope and collapse due to hypotension. -- Hypotension likely medication induced. -- End- stage renal disease on hemodialysis Time spent for discharge: 34 minutes Exam - Constitutional Vitals: Temp Pulse Resp BP Pulse Ox 98.4 F 76 16 102/45 100 04/18/22 11:07 04/18/22 11:07 04/18/22 11:07 04/18/22 11:07 04/18/22 11:07 Plan Activity: advance as tolerated Weight Bearing Status: Weight Bear as Tolerated Diet: renal Follow up with: JESSICA ANDRE MD [Primary Care Provider] - 3-5 Days
[2022-04-18] MEDS: FLUDROCORTISONE 0.1 MG TAB PO SCH (12:32)
[2022-04-18 13:57] LABS: Hepatitis B Surface Antigen Non-Reactive (Negative); Hepatitis C Virus Antibody Non-Reactive (NonReactive)
--- NOTE | 2022-04-18 18:17 | Progress Note ---
Assessment and Plan -- ESRD (end stage renal disease) on dialysis Nephrology team consulted in ED, strict I's/O, monitoring output every shift, monitor fluid balance, avoid nephrotoxic agents. Dialysis as per renal team. Dialysis was held today due to low blood pressure --Morbid obesity, balanced diet will be advanced and discharge when clinically more stable --Hypotension, continue to hold BP mewdication -- Syncope and collapse CT scan head, orthostatic blood pressure management, supportive care. Likely due to low blood sugar, continue to hold BP medications --DVT prophylaxis SCDs to bilateral lower extremities while in bed -- Advance care planning Disease education done, care plan discussed, diagnoses discussed, prognosis discussed, patient is full code. Patient knowledges understanding and agreement with care plan, +30 minutes. -- Preventative health care Patient counseled regarding outpatient follow-up with primary care physician for all age and risk factor appropriate screening test, meal planning, weight reduction, +30 minutes. --Hold dc for now. Added midodrine, will assess 2d echo, PT eval Subjective Date of service: 04/18/22 Interval history: Patient seen and examined. Medical records and medication list reviewed. No acute event overnight noted by the RN. Patient denies any chest pain or difficulty breathing. Patient is tolerating diet. Patient complains of headache, she is currently eating lunch BP remains low Discussed plan of care at bedside with patient. Objective - Exam Narrative Exam: GENERAL: well-developed and obese -[place]ian female lying on bed appeared to be in no discomfort. HEENT: Normocephalic. Atraumatic. No conjunctival congestion or icterus. Patient has moist mucous membranes. NECK: Supple. Trachea midline. CHEST/LUNGS: Clear to auscultated bilaterally, breathing nonlabored. No wheezes crackles or rhonchi. HEART/CARDIOVASCULAR: Regular in rate and rhythm. S1 and S2 positive. ABDOMEN: Abdomen is soft, nontender. Patient has normal bowel sounds. SKIN: There is no rash. Warm and dry. NEURO: No focal motor deficit. Follows command. MUSCULOSKELETAL: No joint effusion or tenderness. EXTRIMITY: No edema, no cyanosis or clubbing. PSYCH: Cooperative. - Constitutional Vitals: Vital Signs - 12hr 04/18/22 04/18/22 04/18/22 08:50 10:00 11:07 Temperature 98.4 F Pulse Rate 76 Respiratory 18 16 Rate Blood Pressure 102/45 O2 Sat by Pulse 100 100 100 Oximetry 04/18/22 16:04 Temperature 98.1 F Pulse Rate 75 Respiratory 16 Rate Blood Pressure 111/49 O2 Sat by Pulse 100 Oximetry - Labs CBC & Chem 7: 04/17/22 06:53 04/18/22 04:59 Labs: Abnormal lab results 04/17/22 04/18/22 04/18/22 Range/Units 21:46 04:59 07:32 BUN 57 H (7-17) mg/dL Creatinine 10.0 H (0.6-1.2) mg/dL POC Glucose 112 H 113 H (70-105) mg/dL Calcium 7.4 L (8.4-10.2) mg/dL HEART Score - HEART Score Troponin: Troponin T 0.038 ng/mL (0.00-0.029) H 04/17/22 06:53
[2022-04-19] MEDS: ACETAMINOPHEN 325 MG TAB PO PRN (09:16)
[2022-04-19] MEDS: FAMOTIDINE 10 MG TAB PO SCH ×2 (09:16→22:16)
[2022-04-19] MEDS: FLUDROCORTISONE 0.1 MG TAB PO SCH (09:16)
--- NOTE | 2022-04-19 10:10 | Progress Note ---
Subjective Interval history: Assessment and plan #ESRD currently on maintenance hemodialysis, patient has been noted to be hypotensive pending cardiology evaluation and follow-up No emergent indication for renal replacement therapy today can be considered tomorrow if she is more stable from cardiac standpoint #Hypotension concerning somewhat lower than before. Consider midodrine possibly fludrocortisone as well as compression stocking #Anemia in end-stage renal disease current hemoglobin around 9.2 to monitor and follow, has a low-grade thrombocytopenia #Bone mineral disorder and secondary hyperparathyroidism patient was advised to increase her calcium intake in the outpatient setting continue with calcium acetate she does have in a prescription at home Diet and nutrition: High-protein diet fluid 1500 cc/day Liberalize intake of dietary sodium and lieu of hypotension If there are any renal related issues in regards to this patient please feel free to reach out without any hesitation at [phone] We'll continue to follow and make recommendation for renal standpoint. Progress note by: Reji Linares MD [address] [place] [id number] Tele [phone] [email or web address] Patient was seen today for follow-up of multiple renal related issues No complaints of any chest pain pressure or shortness of breath Interdisciplinary notes that also reviewed Events of 24 hours vitals labs intake output medications were reviewed Past medical history: Reviewed Family history: Reviewed Social history: Reviewed Allergies: Reviewed Physical examination: Vitals: Reviewed HEENT: No pallor or icterus oral mucosa moist Neck: Supple no JVD no thyromegaly Chest: Bilateral clear to auscultation anteriorly Heart: Regular rate and rhythm S1-S2 heard no S3-S4 Abdomen: Soft nontender no voluntary guarding rigidity rebound Extremity: Dry skin less than 1+ peripheral edema Psychiatric: No evidence of agitation and aggression noted Dermatology: No petechial rashes Labs and x-rays: Reviewed from today Objective - Lab 04/17/22 06:53 04/18/22 04:59 Most recent lab results Calcium 7.4 mg/dL (8.4-10.2) L 04/18/22 04:59 Magnesium 1.70 mg/dL (1.7-2.3) 04/17/22 06:53 Medications & Allergies - Medications Allergies/Adverse Reactions: Allergies iodine Allergy (Verified 04/18/22 04:38) Itching Home Medications: Home Medications Medication Instructions Recorded Confirmed Last Taken Type Calcium Acetate [Phoslo] 667 mg PO TID 06/19/16 04/17/22 10/20/16 History Famotidine [Pepcid] 20 mg PO DAILY 06/19/16 04/17/22 10/20/16 History Vit B Comp C/Folic Acid/Vit D3 1 each PO DAILY 06/19/16 04/17/22 10/20/16 History [Dialyvite 800 Plus D Wafer] Ipratropium/Albuterol Sulfate 1 ampul IH TIDRT #30 ampul.neb 06/22/16 04/17/22 10/20/16 Rx [DUONEB *Not for PRN Use*] Acetaminophen [Acetaminophen TAB] 650 mg PO Q4H PRN tablet 10/22/19 04/17/22 Unknown Rx Cyclobenzaprine [Flexeril 10 MG 10 mg PO TID PRN tablet 10/22/19 04/17/22 Unknown Rx TAB] Folic Acid/Vit B Comp W-C [Renal 1 cap PO QDAY capsule 10/22/19 04/17/22 Unknown Rx Caps] Calcium Acetate [Phoslo] 1,334 mg PO TID 30 Days #180 04/20/22 Unknown Rx capsule Fludrocortisone [Florinef] 0.05 mg PO QDAY 30 Days #15 tablet 04/20/22 Unknown Rx Midodrine [Proamatine] 10 mg PO BID 30 Days #120 tablet 04/20/22 Unknown Rx Active Medications: Generic Name Dose Route Start Last Admin Trade Name Freq PRN Reason Stop Dose Admin Acetaminophen 650 mg 04/17/22 16:30 04/19/22 09:16 Acetaminophen 325 Mg Tab PO 650 mg Q4H PRN Administration Pain MILD(1-3)/Fever >100.5/ROQUE Albuterol 2.5 mg 04/17/22 16:00 Albuterol 2.5 Mg/3 Ml Nebu IH Q4HRT PRN Shortness Of Breath Calcium Acetate 1,334 mg 04/19/22 14:00 Calcium Acetate 667 Mg Cap PO TID SEKOU Epoetin Paoc-epbx 20,000 unit 04/19/22 10:30 Epoetin Paco-Epbx 20,000 Unit/1 Ml Vial SUB-Q 04/19/22 10:31 ONCE ONE Famotidine 10 mg 04/17/22 22:00 04/19/22 09:16 Famotidine 10 Mg Tab PO 10 mg BID [facility] Administration Fludrocortisone Acetate 0.05 mg 04/18/22 11:00 04/19/22 09:16 Fludrocortisone 0.1 Mg Tab PO 0.05 mg QDAY [facility] Administration Hydromorphone HCl 0.5 mg 04/17/22 16:30 Hydromorphone 0.5 Mg/0.5 Ml Inj IV Q23H PRN Pain , Severe (7-10) Midodrine 5 mg 04/19/22 10:00 Midodrine 5 Mg Tab PO BID [facility] Ondansetron HCl 4 mg 04/17/22 16:30 Ondansetron 4 Mg/2 Ml Inj IV Q8H PRN Nausea And Vomiting Oxycodone/Acetaminophen 1 tab 04/17/22 16:30 Oxycodone /Acetaminophen 5-325mg Tab PO Q6H PRN Pain, Moderate (4-6) Sodium Chloride 10 ml 04/17/22 22:00 04/19/22 09:17 Sodium Chloride 0.9% 10 Ml Flush Syringe IV 10 ml BID SEKOU Administration Sodium Chloride 10 ml 04/17/22 15:51 Sodium Chloride 0.9% 10 Ml Flush Syringe IV 04/22/22 15:50 PRN PRN LINE FLUSH
[2022-04-19] MEDS ORDERED: EPOETIN ALFA-EPBX 20,000 UNIT/1 ML VIAL SUB-Q ONE (10:30)
--- NOTE | 2022-04-19 11:08 | Consultation ---
History of Present Illness Consult date: 04/19/22 Requesting physician: JAVAD TALAMANTES Consult reason: hypotension History of present illness: 56-year-old female with known history of severe pulmonary hypertension with RV dilation and dysfunction end-stage renal disease on hemodialysis has been having persistent low blood pressure. Patient normally takes midorine 5mg on dialysis days. Was brought in from dialysis as patient was having syncopal type episodes during dialysis. In discussion with nephrology reinitiate midodrine 5 mg twice a day and monitor blood pressure during dialysis. Patient not a candidate for pulmonary hypertension medications secondary to low blood pressure Past History Past Medical History: diabetes, ESRD, heart failure, other (Severe pulmonary hypertension) Past Surgical History: , Other (Dialysis access) Social history: . denies: smoking, alcohol abuse, prescription drug abuse Family history: diabetes, hypertension Medications and Allergies Allergies Allergy/AdvReac Type Severity Reaction Status Date / Time iodine Allergy Itching Verified 04/18/22 04:38 Home Medications Medication Instructions Recorded Confirmed Last Taken Type Calcium Acetate [Phoslo] 667 mg PO TID 06/19/16 04/17/22 10/20/16 History Famotidine [Pepcid] 20 mg PO DAILY 06/19/16 04/17/22 10/20/16 History Vit B Comp C/Folic Acid/Vit D3 1 each PO DAILY 06/19/16 04/17/22 10/20/16 History [Dialyvite 800 Plus D Wafer] Ipratropium/Albuterol Sulfate 1 ampul IH TIDRT #30 ampul.neb 06/22/16 04/17/22 10/20/16 Rx [DUONEB *Not for PRN Use*] Acetaminophen [Acetaminophen TAB] 650 mg PO Q4H PRN tablet 10/22/19 04/17/22 Unknown Rx Cyclobenzaprine [Flexeril 10 MG 10 mg PO TID PRN tablet 10/22/19 04/17/22 Unknown Rx TAB] Folic Acid/Vit B Comp W-C [Renal 1 cap PO QDAY capsule 10/22/19 04/17/22 Unknown Rx Caps] Active Meds: Active Medications Acetaminophen (Acetaminophen 325 Mg Tab) 650 mg PO Q4H PRN PRN Reason: Pain MILD(1-3)/Fever >100.5/ROQUE Last Admin: 04/19/22 09:16 Dose: 650 mg Albuterol (Albuterol 2.5 Mg/3 Ml Nebu) 2.5 mg IH Q4HRT PRN PRN Reason: Shortness Of Breath Calcium Acetate (Calcium Acetate 667 Mg Cap) 1,334 mg PO TID [facility] Epoetin Paco-epbx (Epoetin Paco-Epbx 10,000 Unit/1 Ml Vial) 20,000 unit IV ONCE ONE Stop: 04/19/22 11:31 Famotidine (Famotidine 10 Mg Tab) 10 mg PO BID [facility] Last Admin: 04/19/22 09:16 Dose: 10 mg Fludrocortisone Acetate (Fludrocortisone 0.1 Mg Tab) 0.05 mg PO QDAY [facility] Last Admin: 04/19/22 09:16 Dose: 0.05 mg Hydromorphone HCl (Hydromorphone 0.5 Mg/0.5 Ml Inj) 0.5 mg IV Q23H PRN PRN Reason: Pain , Severe (7-10) Midodrine (Midodrine 5 Mg Tab) 5 mg PO BID [facility] Ondansetron HCl (Ondansetron 4 Mg/2 Ml Inj) 4 mg IV Q8H PRN PRN Reason: Nausea And Vomiting Oxycodone/Acetaminophen (Oxycodone /Acetaminophen 5-325mg Tab) 1 tab PO Q6H PRN PRN Reason: Pain, Moderate (4-6) Sodium Chloride (Sodium Chloride 0.9% 10 Ml Flush Syringe) 10 ml IV BID [facility] Last Admin: 04/19/22 09:17 Dose: 10 ml Sodium Chloride (Sodium Chloride 0.9% 10 Ml Flush Syringe) 10 ml IV PRN PRN PRN Reason: LINE FLUSH Stop: 04/22/22 15:50 Review of Systems All systems: negative (As per the HPI) Physical Examination Vital Signs Temp Pulse Resp BP Pulse Ox 97.2 F L 76 18 110/72 100 04/17/22 06:07 04/17/22 06:07 04/17/22 06:07 04/17/22 06:07 04/17/22 06:07 General appearance: no acute distress, well-nourished HEENT: Positive: PERRL, Mucus Membranes Moist Neck: Positive: neck supple, trachea midline Cardiac: Positive: Reg Rate and Rhythm, S1/S2. Negative: Audible Murmur Lungs: Positive: clear to auscultation, Normal Breath Sounds Neuro: Positive: Grossly Intact Abdomen: Positive: Soft, Active Bowel Sounds. Negative: Tender, Distended Female genitourinary: deferred Skin: Positive: Clear Incision: Cardiac Cath Site Musculoskeletal: No Pain, Normal Range of Motion Extremities: Present: normal. Absent: edema Results 04/17/22 06:53 04/18/22 04:59 - Imaging and Cardiology Echo: pending EKG interpretations - Telemetry EKG Rhythm: Sinus Rhythm (Nonspecific ST-T) Assessment and Plan 56-year-old female with severe pulmonary hypertension RV dysfunction end-stage renal disease on hemodialysis having syncopal episode secondary low blood pressure vasovagal. Increase midodrine from 5 mg on dialysis days to twice a day daily and patient will proceed with dialysis and see if patient can tolerate - Patient Problems (1) ESRD (end stage renal disease) on dialysis Current Visit: Yes Status: Acute (2) Hypotension Current Visit: Yes Status: Acute Qualifiers: Hypotension type: unspecified hypotension type Qualified Code(s): I95.9 - Hypotension, unspecified (3) Orthostatic hypotension Current Visit: Yes Status: Acute (4) Pulmonary hypertension Current Visit: Yes Status: Acute (5) Syncope and collapse Current Visit: Yes Status: Acute (6) End-stage renal disease needing dialysis Current Visit: No Status: Acute (7) Hyperkalemia Current Visit: No Status: Acute
[2022-04-19] MEDS: MIDODRINE 5 MG TAB PO SCH ×2 (11:21→22:18)
[2022-04-19] MEDS ORDERED: EPOETIN ALFA-EPBX 10,000 UNIT/1 ML VIAL IV ONE (11:30)
--- NOTE | 2022-04-19 11:55 | Progress Note ---
Assessment and Plan -- ESRD (end stage renal disease) on dialysis Nephrology team consulted in ED, strict I's/O, monitoring output every shift, monitor fluid balance, avoid nephrotoxic agents. Dialysis as per renal team. Dialysis was held yesterday due to low blood pressure --Morbid obesity, balanced diet will be advanced and discharge when clinically more stable --Hypotension, added midodrine, follow clinically -- Pulmonary hypertension, will recheck 2D echo, patient without any exacerbation right now and without any respiratory distress --Elevated troponin/NSTEMI type II, consulted cardiology, follow 2D echo -- Syncope and collapse CT scan head w/o any acute process, orthostatic blood pressure management, supportive care. --headache, persistent, repeat Ct head --DVT prophylaxis SCDs to bilateral lower extremities while in bed -- Advance care planning Disease education done, care plan discussed, diagnoses discussed, prognosis discussed, patient is full code. Patient knowledges understanding and agreement with care plan, +30 minutes. -- Preventative health care Patient counseled regarding outpatient follow-up with primary care physician for all age and risk factor appropriate screening test, meal planning, weight reduction, +30 minutes. --Hold dc for now. Added midodrine, will assess 2d echo, PT eval Subjective Date of service: 04/19/22 Interval history: Patient seen and examined. Medical records and medication list reviewed. No acute event overnight noted by the RN. Patient denies any chest pain or difficulty breathing. Patient is tolerating diet. Patient complains of persistent headache, BP slightly improved Discussed plan of care at bedside with patient. Objective - Exam Narrative Exam: GENERAL: well-developed and obese -[place] female lying on bed appeared to be in no discomfort. HEENT: Normocephalic. Atraumatic. No conjunctival congestion or icterus. Patient has moist mucous membranes. NECK: Supple. Trachea midline. CHEST/LUNGS: Clear to auscultated bilaterally, breathing nonlabored. No wheezes crackles or rhonchi. HEART/CARDIOVASCULAR: Regular in rate and rhythm. S1 and S2 positive. ABDOMEN: Abdomen is soft, nontender. Patient has normal bowel sounds. SKIN: There is no rash. Warm and dry. NEURO: No focal motor deficit. Follows command. MUSCULOSKELETAL: No joint effusion or tenderness. EXTRIMITY: No edema, no cyanosis or clubbing. PSYCH: Cooperative. - Constitutional Vitals: Vital Signs - 12hr 04/19/22 10:00 O2 Sat by Pulse 100 Oximetry - Labs CBC & Chem 7: 04/17/22 06:53 04/18/22 04:59 Labs: Abnormal lab results 04/18/22 Range/Units 07:32 POC Glucose 113 H (70-105) mg/dL HEART Score - HEART Score Troponin: Troponin T 0.026 ng/mL (0.00-0.029) 04/18/22 18:40
--- NOTE | 2022-04-19 15:14 | Cat Scan Report ---
CT head/brain wo con INDICATION / CLINICAL INFORMATION: 56 years Female; headache. TECHNIQUE: Routine CT head without contrast. All CT scans at this location are performed using CT dos e reduction for ALARA by means of automated exposure control. COMPARISON: The study is compared with the previous CT of 04/17/2022. FINDINGS: BRAIN / INTRACRANIAL CONTENTS: There again appear to be mild cerebral white matter changes most consi stent with mild microvascular angiopathy. The ventricular system remains appropriate in size and conf iguration. There is no clear CT evidence of acute intracranial hemorrhage or significant mass effect. ORBITS: No significant abnormality of visualized orbits. SINUSES / MASTOIDS: No significant abnormality in the visualized paranasal sinuses or mastoid air la nena ls. CRANIOCERVICAL JUNCTION: No significant abnormality. ADDITIONAL FINDINGS: None. IMPRESSION: 1. There is no clear CT evidence of acute intracranial process or significant interval change from 04/17/2022. Signer Name: Catalino House MD Signed: 04/19/2022 3:09 PM Workstation Name: [id number]
[2022-04-19] MEDS: CALCIUM ACETATE 667 MG CAP PO SCH ×2 (16:25→21:40)
[2022-04-20] MEDS: ACETAMINOPHEN 325 MG TAB PO PRN (06:29)
[2022-04-20] MEDS: CALCIUM ACETATE 667 MG CAP PO SCH ×2 (08:19→13:01)
[2022-04-20] MEDS: FAMOTIDINE 10 MG TAB PO SCH (09:07)
[2022-04-20] MEDS: FLUDROCORTISONE 0.1 MG TAB PO SCH (09:08)
[2022-04-20] MEDS: MIDODRINE 5 MG TAB PO SCH ×3 (09:08→13:01)
--- NOTE | 2022-04-20 11:21 | Progress Note ---
Assessment and Plan 56-year-old female echocardiogram shows normal LV function and normal RV function with moderate severe RV dilation with severe pulmonary pretension. Increase midodrine to 10 mg twice a day. See if patient can tolerate dialysis if so may be discharged from a cardiovascular point of view. Patient is ambulatory with physical therapy. - Patient Problems (1) ESRD (end stage renal disease) on dialysis Current Visit: Yes Status: Acute (2) Hypotension Current Visit: Yes Status: Acute Qualifiers: Hypotension type: unspecified hypotension type Qualified Code(s): I95.9 - Hypotension, unspecified (3) Orthostatic hypotension Current Visit: Yes Status: Acute (4) Pulmonary hypertension Current Visit: Yes Status: Acute (5) Syncope and collapse Current Visit: Yes Status: Acute (6) End-stage renal disease needing dialysis Current Visit: No Status: Acute (7) Hyperkalemia Current Visit: No Status: Acute Subjective Date of service: 04/20/22 Principal diagnosis: hypotension Interval history: going through pt no cp or syncope Objective Vital Signs Temp Pulse Resp BP Pulse Ox 04/20/22 10:00 98 04/20/22 06:21 76 18 110/59 100 04/20/22 06:13 73 18 87/49 100 04/20/22 02:09 73 20 109/39 99 04/19/22 22:09 82 20 92/41 94 04/19/22 22:00 18 94 04/19/22 20:38 97 04/19/22 18:30 98.7 F 80 20 119/61 100 04/19/22 12:15 98.1 F 70 24 122/65 100 - Physical Examination General: No Apparent Distress HEENT: Positive: PERRL, Mucus Membranes Moist Neck: Positive: neck supple, trachea midline Cardiac: Positive: Reg Rate and Rhythm, Audible Murmur Lungs: Positive: clear to auscultation Neuro: Positive: Grossly Intact Abdomen: Positive: Soft, Active Bowel Sounds. Negative: Tender, Distended Skin: Positive: Clear Incision: Cardiac Cath Site Musculoskeletal: No Pain, Normal Range of Motion Extremities: Present: normal. Absent: edema - Imaging and Cardiology Echo: report reviewed - Telemetry EKG Rhythm: Sinus Rhythm
[2022-04-20] MEDS ORDERED: ALBUMIN HUMAN 25% (12.5 GM/50 ML) INJ IV ONE (12:03)
--- NOTE | 2022-04-20 12:04 | Progress Note ---
Subjective Principal diagnosis: hypotension Interval history: Assessment and plan #End-stage kidney disease: Patient will continue to receive hemodialysis treatment 3 times a week on Wednesday, seen and supervised hemodialysis with dialysis prescription change, midodrine and fludrocortisone patient is doing much better she is receiving her dialysis treatment if symptomatic postdialysis she can be considered for discharge home Dialysis nurse to monitor blood pressure and heart rate closely while ultra filtration is done to make sure patient stays stable, Outpatient dialysis facility: #Access: Needs to be monitored during dialysis #Hypertension and volume: Blood pressure has been low volume has been normal, started on midodrine as well as fludrocortisone, dialysate sodium was increased patient made aware not to drink excessive amount of fluid #Anemia in end-stage kidney disease: Monitor hemoglobin and hematocrit, erythropoietin as needed Bone mineral disorder and secondary hyperparathyroidism; Monitor phosphorus binders as necessary goal phosphorus less than 5-1/2 #Diet and nutrition: Protein supplementation as well as multivitamins #Medication changes: Continue with midodrine as well as fludrocortisone for now history of severe pulmonary hypertension discussed with cardiology service will need to continue with these medications If there is any further question in regards to this patient renal care please contact me in [phone] If there are any renal related issues in regards to this patient please feel free to reach out without any hesitation at [phone] We'll continue to follow and make recommendation for renal standpoint. Progress note by: Reji Linares MD [address] [place] [id number] Tele [phone] [email or web address] Patient was seen today for follow-up of multiple renal related issues No complaints of any chest pain pressure or shortness of breath Interdisciplinary notes that also reviewed Events of 24 hours vitals labs intake output medications were reviewed Past medical history: Reviewed Family history: Reviewed Social history: Reviewed Allergies: Reviewed Physical examination: Vitals: Reviewed HEENT: No pallor or icterus oral mucosa moist Neck: Supple no JVD no thyromegaly Chest: Bilateral clear to auscultation anteriorly Heart: Regular rate and rhythm S1-S2 heard no S3-S4 Abdomen: Soft nontender no voluntary guarding rigidity rebound Extremity: Dry skin less than 1+ peripheral edema Psychiatric: No evidence of agitation and aggression noted Dermatology: No petechial rashes Labs and x-rays: Reviewed from today Objective - Vital Signs Vital signs: Vital Signs - 12hr 04/20/22 04/20/22 04/20/22 02:09 06:13 06:21 Pulse Rate 73 73 76 Respiratory 20 18 18 Rate Blood Pressure 109/39 87/49 110/59 O2 Sat by Pulse 99 100 100 Oximetry 04/20/22 10:00 Pulse Rate Respiratory Rate Blood Pressure O2 Sat by Pulse 98 Oximetry - Lab 04/17/22 06:53 04/18/22 04:59 Most recent lab results Calcium 7.4 mg/dL (8.4-10.2) L 04/18/22 04:59 Magnesium 1.70 mg/dL (1.7-2.3) 04/17/22 06:53 Medications & Allergies - Medications Allergies/Adverse Reactions: Allergies iodine Allergy (Verified 04/18/22 04:38) Itching Home Medications: Home Medications Medication Instructions Recorded Confirmed Last Taken Type Calcium Acetate [Phoslo] 667 mg PO TID 06/19/16 04/17/22 10/20/16 History Famotidine [Pepcid] 20 mg PO DAILY 06/19/16 04/17/22 10/20/16 History Vit B Comp C/Folic Acid/Vit D3 1 each PO DAILY 06/19/16 04/17/22 10/20/16 History [Dialyvite 800 Plus D Wafer] Ipratropium/Albuterol Sulfate 1 ampul IH TIDRT #30 ampul.neb 06/22/16 04/17/22 10/20/16 Rx [DUONEB *Not for PRN Use*] Acetaminophen [Acetaminophen TAB] 650 mg PO Q4H PRN tablet 10/22/19 04/17/22 Unknown Rx Cyclobenzaprine [Flexeril 10 MG 10 mg PO TID PRN tablet 10/22/19 04/17/22 Unknown Rx TAB] Folic Acid/Vit B Comp W-C [Renal 1 cap PO QDAY capsule 10/22/19 04/17/22 Unknown Rx Caps] Calcium Acetate [Phoslo] 1,334 mg PO TID 30 Days #180 04/20/22 Unknown Rx capsule Fludrocortisone [Florinef] 0.05 mg PO QDAY 30 Days #15 tablet 04/20/22 Unknown Rx Midodrine [Proamatine] 10 mg PO BID 30 Days #120 tablet 04/20/22 Unknown Rx Active Medications: Generic Name Dose Route Start Last Admin Trade Name Freq PRN Reason Stop Dose Admin Acetaminophen 650 mg 04/17/22 16:30 04/20/22 06:29 Acetaminophen 325 Mg Tab PO 650 mg Q4H PRN Administration Pain MILD(1-3)/Fever >100.5/ROQUE Albumin Human 25 gm 04/20/22 12:03 Albumin Human 25% (12.5 Gm/50 Ml) Inj IV 04/20/22 12:04 ONCE ONE Albuterol 2.5 mg 04/17/22 16:00 Albuterol 2.5 Mg/3 Ml Nebu IH Q4HRT PRN Shortness Of Breath Calcium Acetate 1,334 mg 04/19/22 14:00 04/20/22 08:19 Calcium Acetate 667 Mg Cap PO 1,334 mg TID SEKOU Administration Famotidine 10 mg 04/17/22 22:00 04/20/22 09:07 Famotidine 10 Mg Tab PO 10 mg BID SEKOU Administration Fludrocortisone Acetate 0.05 mg 04/18/22 11:00 04/20/22 09:08 Fludrocortisone 0.1 Mg Tab PO 0.05 mg QDAY SEKOU Administration Hydromorphone HCl 0.5 mg 04/17/22 16:30 Hydromorphone 0.5 Mg/0.5 Ml Inj IV Q23H PRN Pain , Severe (7-10) Midodrine 10 mg 04/20/22 12:00 04/20/22 10:23 Midodrine 5 Mg Tab PO 5 mg BID SEKOU Administration Ondansetron HCl 4 mg 04/17/22 16:30 Ondansetron 4 Mg/2 Ml Inj IV Q8H PRN Nausea And Vomiting Oxycodone/Acetaminophen 1 tab 04/17/22 16:30 04/19/22 18:49 Oxycodone /Acetaminophen 5-325mg Tab PO 1 tab Q6H PRN Administration Pain, Moderate (4-6) Sodium Chloride 10 ml 04/17/22 22:00 04/20/22 09:09 Sodium Chloride 0.9% 10 Ml Flush Syringe IV 10 ml BID SEKOU Administration Sodium Chloride 10 ml 04/17/22 15:51 Sodium Chloride 0.9% 10 Ml Flush Syringe IV 04/22/22 15:50 PRN PRN LINE FLUSH
--- NOTE | 2022-04-20 13:19 | Discharge Summary ---
Providers - Providers Date of Admission: 04/17/22 15:51 Date of discharge: 04/20/22 Attending physician: MONIQUE CHUNG MD 04/18/22 12:23 Physical Therapy Evaluation and Treat [CONS] Routine Comment: Reason For Exam: Debility 04/19/22 08:58 Consult to Physician [CONS] Routine Comment: Consulting Provider: NINA LÓPEZ Physician Instructions: Reason For Exam: hypotension Primary care physician: JESSICA ANDRE Hospitalization Reason for admission: syncope Condition: Stable Hospital course: Patient is a 56-year-old female with history of ESRD on HD, hypertension, CHF, pulmonary hypertension and chronic respiratory failure on 2 L oxygen who presented with syncopal episode. CT of the head showed no acute intracranial abnormality. Echocardiogram showed normal left ventricular ejection fraction and signs consistent with right ventricular volume overload, and severe pu lmonary hypertension. She was found to have consistently low blood pressures and midodrine was restarted and increased. Patient's blood pressure improved as well as mentation. Repeat CT head was negative. Patient tolerated dialysis session and was discharged home. Disposition: 01 HOME / SELF CARE / HOMELESS Final Discharge Diagnosis (Prints w/discharge instructions): Syncope likely secondary to orthostatic hypotension. ESRD requiring HD. Severe pulmonary hypertension. Chronic respiratory failure Time spent for discharge: 30 minutes Core Measure Documentation - Palliative Care Palliative Care/ Comfort Measures: Not Applicable - Core Measures Any of the following diagnoses?: none Exam - Physical Exam Narrative exam: GENERAL: Well-developed well-nourished. In no acute distress. HEENT: NC @4LPM. NECK: Supple. CHEST/LUNGS: CTAB on room air HEART/CARDIOVASCULAR: RRR. No murmur, rubs or gallops appreciated. ABDOMEN: +BS. NT/ND. SKIN: No rashes noted. NEURO: No focal motor deficit. Follows all commands. MUSCULOSKELETAL: No joint effusion EXTREMITIES: RUE AVF. No cyanosis, clubbing or edema. PSYCH: Cooperative. - Constitutional Vitals: Temp Pulse Resp BP Pulse Ox 98.3 F 70 18 117/58 100 04/20/22 10:50 04/20/22 10:50 04/20/22 10:50 04/20/22 10:50 04/20/22 10:50 Plan Care Plan Goals: Please continue to follow up with dialysis after discharge. Please start taking all medications as they are prescribed to you. Follow up with: JESSICA ANDRE MD [Primary Care Provider] - 3-5 Days Prescriptions: Fludrocortisone [Florinef] 0.05 mg PO QDAY 30 Days #15 tablet Calcium Acetate [Phoslo] 1,334 mg PO TID 30 Days #180 capsule Midodrine [Proamatine] 10 mg PO BID 30 Days #120 tablet
--- NOTE | 2022-04-20 16:58 | Electrocardiograph Report ---
[facility] Test Date: 2022-04-19 Test Time: 17:24:55 Pat Name: GYPSY REED Department: Room: A391 1 Gender: F Climatology Professor: SARAN : 1965 Requested By: JAVAD TALAMANTES Order Number: [id number] Reading MD: Garrison Loo Measurements Intervals Tucker Rate: 76 P: 46 [place]: 161 QRS: 51 QRSD: 100 T: 12 QT: 443 QTc: 499 Interpretive Statements Sinus rhythm Compared to ECG 04/17/2022 07:08:45 Anterior T wave inversions are less prominent Electronically Signed On 04-20-2022 16:58:02 EDT by Garrison Loo
[2022-04-20 17:29] VITALS: BP 122/74
== END 2022-04-20 17:36 | disposition home or self-care (01) | DRG 280 ==
LOC: ED 06:05 → 3A 15:51
PROVIDERS: ADMIT Internal Medicine; ATTEND Student in an Organized Health Care Education/Training Program
PROC: 5A1D70Z Performance of Urinary Filtration, Intermittent, Less than 6 Hours Per Day (ICD-10-PCS; principal; 2022-04-20)
DX: I95.1 Orthostatic hypotension (principal); N18.6 End stage renal disease; I21.A1 Myocardial infarction type 2; E66.2 Morbid (severe) obesity with alveolar hypoventilation; E87.2 Acidosis; I13.2 Hypertensive heart and chronic kidney disease with heart failure and with stage 5 chronic kidney disease, or end stage renal disease; N25.81 Secondary hyperparathyroidism of renal origin; J96.10 Chronic respiratory failure, unspecified whether with hypoxia or hypercapnia; Z68.41 Body mass index [BMI] 40.0-44.9, adult; I50.9 Heart failure, unspecified; E11.22 Type 2 diabetes mellitus with diabetic chronic kidney disease; Z99.2 Dependence on renal dialysis; K21.9 Gastro-esophageal reflux disease without esophagitis; I27.20 Pulmonary hypertension, unspecified; D63.1 Anemia in chronic kidney disease; F32.A Depression, unspecified; M32.9 Systemic lupus erythematosus, unspecified; J45.909 Unspecified asthma, uncomplicated; E83.51 Hypocalcemia; E87.5 Hyperkalemia; Z83.3 Family history of diabetes mellitus; Z82.49 Family history of ischemic heart disease and other diseases of the circulatory system; Z88.3 Allergy status to other anti-infective agents
CPT/HCPCS: 36415; 70450; 71045; 80048; 80053; 80061; 80074; 82962; 83735; 84484; 85025; 85610; 93005; 93306; 94640; 94760; G0378; C8929; J0885; J7030; P9047